=== PATIENT | male | born 1950 | race African-American/Black ===

== ENCOUNTER 2017-02-02 10:48 | Emergency (ER) | payer OTHER ==
[~2017-02-02] VITALS: Ht 180.3 cm; Wt 76.8 kg
[~2017-02-02 10:48] MED LIST: GEMF600T3 PO; HYDR12.54 PO; IBUP-2071 PO; LEVE750T10 PO; LISI-660 PO; THIA100 PO
[2017-02-02] MEDS ORDERED: SODIUM CHLORIDE 0.9% 1,000 ML IV ONE ×2 (11:30→12:15)
[2017-02-02 11:42] LABS: BASOPHILS % (AUTO) 0.3 % (0.0-2.0); EOSINOPHILS % (AUTO) 0.6 % (1.0-6.0); HEMATOCRIT 33.9 % (41-53); HEMOGLOBIN 11.5 g/dL (13.5-17.5); LYMPHOCYTES # (AUTO) 1.4 K/uL (1.0-4.8); LYMPHOCYTES % (AUTO) 9.2 % (22.0-44.0); MEAN CORPUSCULAR HEMOGLOBIN 31.5 pg (26.0-34.0); MEAN CORPUSCULAR VOLUME 93 fL (80-100); MONOCYTES # (AUTO) 1.3 K/uL (0.1-1.0); MONOCYTES % (AUTO) 8.9 % (2.0-9.0); NEUTROPHILS # (AUTO) 12.2 K/uL (1.8-7.7); PLATELET COUNT (AUTO) 310 K/uL (150-450); RED BLOOD CELL COUNT(AUTO) 3.66 MIL/uL (4.50-5.90); RED CELL DISTRIBUTION WIDTH 14.3 % (11.5-14.5)
[2017-02-02 11:51] LABS: CALCIUM, TOTAL 9.4 mg/dL (8.8-10.5); CREATININE 1.84 mg/dL (0.60-1.30); POTASSIUM 4.2 mmol/L (3.5-5.1)
[2017-02-02 11:59] LABS: BILIRUBIN,TOTAL 1.2 mg/dL (0.1-1.0); TOTAL PROTEIN, SERUM 8.5 g/dL (6.4-8.2)
[2017-02-02 12:06] LABS: INFLUENZA TYPE B NEGATIVE FOR TYPE B (NEGATIVE)
[2017-02-02] MEDS ORDERED: ALBUTEROL SULFATE 2.5 MG/0.5 ML NEB SOLUTION NEB ONE (12:15)
[2017-02-02] MEDS ORDERED: MethylPREDNISolone SOD SUCC 125 MG/2 ML VIAL IVP ONE (12:15)
[2017-02-02] MEDS ORDERED: IPRATROPIUM BROMIDE 0.5 MG/2.5 ML NEB SOLUTION NEB ONE (12:15)
[2017-02-02 14:19] VITALS: BP 111/78
== END 2017-02-02 14:38 | disposition home or self-care (01) ==
LOC: EMS 10:50
DX: J40 Bronchitis, not specified as acute or chronic (principal); E86.0 Dehydration; R19.7 Diarrhea, unspecified; F17.210 Nicotine dependence, cigarettes, uncomplicated; F03.90 Unspecified dementia, unspecified severity, without behavioral disturbance, psychotic disturbance, mood disturbance, and anxiety; I10 Essential (primary) hypertension; F32.9 Major depressive disorder, single episode, unspecified
CPT/HCPCS: 36415; 71010; 80053; 85025; 87804; 94640; 96361; 96374; 99285; J2930; J7030; J7613

== ENCOUNTER 2017-02-15 12:46 | Inpatient (IN) | payer MEDICAID, OTHER ==
[~2017-02-15] VITALS: Ht 182.9 cm; Wt 73.0 kg
[2017-02-15] MEDS ORDERED: GABA-531 PO (13:00)
[2017-02-15] MEDS ORDERED: ACET1TAB12 PO (13:03)
[2017-02-15 14:51] LABS: BASOPHILS % (AUTO) 0.9 % (0.0-2.0); EOSINOPHILS % (AUTO) 4.1 % (1.0-6.0); HEMATOCRIT 31.3 % (41-53); HEMOGLOBIN 10.3 g/dL (13.5-17.5); LYMPHOCYTES # (AUTO) 1.8 K/uL (1.0-4.8); LYMPHOCYTES % (AUTO) 32.7 % (22.0-44.0); MEAN CORPUSCULAR HEMOGLOBIN 31.2 pg (26.0-34.0); MEAN CORPUSCULAR HGB CONC 32.9 G/dL (31.0-37.0); MEAN CORPUSCULAR VOLUME 95 fL (80-100); MONOCYTES # (AUTO) 0.6 K/uL (0.1-1.0); MONOCYTES % (AUTO) 10.4 % (2.0-9.0); NEUTROPHILS # (AUTO) 2.9 K/uL (1.8-7.7); NEUTROPHILS % (AUTO) 51.9 % (40.0-70.0); PLATELET COUNT (AUTO) 490 K/uL (150-450); RED CELL DISTRIBUTION WIDTH 15.2 % (11.5-14.5); WHITE BLOOD COUNT (AUTO) 5.6 K/uL (4.5-11.0)
[2017-02-15 15:02] LABS: ANION GAP 7 mmol/L (8-16); CALCIUM, TOTAL 8.7 mg/dL (8.8-10.5); CARBON DIOXIDE 31 mmol/L (22-29); CHLORIDE 107 mmol/L (98-107); CREATININE 1.87 mg/dL (0.60-1.30); GLOMERULAR FILTR. RATE CALC 44 mL/min (>60); POTASSIUM 4.5 mmol/L (3.5-5.1); SODIUM SERUM 145 mmol/L (136-145); UREA NITROGEN, BLOOD 25 mg/dL (7-18)
[2017-02-15 15:08] LABS: ALANINE AMINOTRANSFERASE 20 U/L (12-78); ASPARTATE AMINOTRANSFERASE 21 U/L (15-37); BILIRUBIN,TOTAL 0.1 mg/dL (0.1-1.0)
[2017-02-15] MEDS ORDERED: LORazepam 2 MG TABLET PO PRN (18:30)
[2017-02-15] MEDS ORDERED: LORazepam 2 MG TABLET PO ONE (18:30)
[2017-02-15] MEDS ORDERED: ZOLPIDEM TARTRATE 10 MG TABLET PO PRN (18:30)
[2017-02-15] MEDS ORDERED: HALOPERIDOL 5 MG TABLET PO PRN (18:30)
[2017-02-15] MEDS: LevETIRAcetam 250 MG TABLET PO SCH (20:02)
[2017-02-15 22:43] VITALS: BP 126/75
[2017-02-16] MEDS ORDERED: PNEUMOCOCCAL VACCINE POLYVALENT 0.5 ML VIAL [PPSV23] IM ONE (03:30)
[2017-02-16 06:16] VITALS: BP 112/69
[2017-02-16] MEDS: LOSARTAN POTASSIUM 25 MG TABLET PO SCH (08:51)
[2017-02-16] MEDS: LevETIRAcetam 250 MG TABLET PO SCH ×2 (08:51→16:51)
[2017-02-16] MEDS: NICOTINE 21 MG/24 HOUR PATCH TD SCH (08:52)
[2017-02-16 09:10] VITALS: BP 122/66
[2017-02-16] MEDS ORDERED: HydrOXYzine PAMOATE 25 MG CAPSULE PO PRN (15:45)
[2017-02-16 16:27] VITALS: BP 136/76
[2017-02-16] MEDS: SERTRALINE HCL 50 MG TABLET PO SCH (16:51)
[2017-02-16] MEDS: MULTIVITAMINS WITH IRON TABLET PO SCH (16:51)
[2017-02-16] MEDS ORDERED: LOPERAMIDE HCL 2 MG CAPSULE PO PRN (17:45)
[2017-02-17] MEDS: FERROUS SULFATE 325 MG EC TABLET PO SCH (06:16)
[2017-02-17 06:42] VITALS: BP 148/80
[2017-02-17] MEDS: LevETIRAcetam 250 MG TABLET PO SCH ×2 (08:52→16:21)
[2017-02-17] MEDS: MULTIVITAMINS WITH IRON TABLET PO SCH (08:52)
[2017-02-17] MEDS: LOSARTAN POTASSIUM 25 MG TABLET PO SCH (08:52)
[2017-02-17] MEDS: SERTRALINE HCL 50 MG TABLET PO SCH (08:52)
[2017-02-17 08:53] VITALS: BP 132/68
[2017-02-17] MEDS: NICOTINE 21 MG/24 HOUR PATCH TD SCH (08:53)
[2017-02-17 16:45] VITALS: BP 146/74
[2017-02-18 06:19] VITALS: BP 148/87
[2017-02-18] MEDS: FERROUS SULFATE 325 MG EC TABLET PO SCH (06:23)
[2017-02-18 07:16] VITALS: BP 137/80
[2017-02-18] MEDS: LevETIRAcetam 250 MG TABLET PO SCH ×2 (08:36→16:12)
[2017-02-18] MEDS: LOSARTAN POTASSIUM 25 MG TABLET PO SCH (08:36)
[2017-02-18] MEDS: MULTIVITAMINS WITH IRON TABLET PO SCH (08:36)
[2017-02-18] MEDS: SERTRALINE HCL 50 MG TABLET PO SCH (08:36)
[2017-02-18] MEDS: NICOTINE 21 MG/24 HOUR PATCH TD SCH (08:37)
[2017-02-18 08:53] VITALS: BP 133/68
[2017-02-18 16:31] VITALS: BP 140/74
[2017-02-19 00:45] VITALS: BP 126/72
[2017-02-19] MEDS: FERROUS SULFATE 325 MG EC TABLET PO SCH (06:19)
[2017-02-19 08:46] VITALS: BP 126/76
[2017-02-19] MEDS: LOSARTAN POTASSIUM 25 MG TABLET PO SCH (09:01)
[2017-02-19] MEDS: LevETIRAcetam 250 MG TABLET PO SCH ×2 (09:01→16:01)
[2017-02-19] MEDS: SERTRALINE HCL 50 MG TABLET PO SCH (09:01)
[2017-02-19] MEDS: NICOTINE 21 MG/24 HOUR PATCH TD SCH (09:01)
[2017-02-19] MEDS: MULTIVITAMINS WITH IRON TABLET PO SCH (09:01)
[2017-02-19 16:29] VITALS: BP 110/82
[2017-02-20 00:56] VITALS: BP 134/68
[2017-02-20] MEDS: FERROUS SULFATE 325 MG EC TABLET PO SCH (06:43)
[2017-02-20 08:20] VITALS: BP 114/69
[2017-02-20] MEDS: LevETIRAcetam 250 MG TABLET PO SCH ×2 (08:39→16:48)
[2017-02-20] MEDS: SERTRALINE HCL 50 MG TABLET PO SCH (08:39)
[2017-02-20] MEDS: NICOTINE 21 MG/24 HOUR PATCH TD SCH (08:39)
[2017-02-20] MEDS: MULTIVITAMINS WITH IRON TABLET PO SCH (08:39)
[2017-02-20] MEDS: LOSARTAN POTASSIUM 25 MG TABLET PO SCH (08:39)
[2017-02-20] MEDS ORDERED: SERT50TA12 PO (16:30)
[2017-02-20] MEDS ORDERED: FERR325T22 PO (16:33)
[2017-02-20] MEDS ORDERED: LOSA25TA21 PO (16:34)
== END 2017-02-20 17:05 | disposition home or self-care (01) | DRG 751 ==
LOC: EMS 12:51 → B2S 19:20
PROVIDERS: ADMIT Psychiatry & Neurology Psychiatry; ATTEND Psychiatry & Neurology Psychiatry
PROC: 3E0234Z Introduction of Serum, Toxoid and Vaccine into Muscle, Percutaneous Approach (ICD-10-PCS; principal; 2017-02-16)
DX: F33.2 Major depressive disorder, recurrent severe without psychotic features (principal); F03.90 Unspecified dementia, unspecified severity, without behavioral disturbance, psychotic disturbance, mood disturbance, and anxiety; R45.851 Suicidal ideations; G40.909 Epilepsy, unspecified, not intractable, without status epilepticus; D64.9 Anemia, unspecified; E78.5 Hyperlipidemia, unspecified; I10 Essential (primary) hypertension; F17.200 Nicotine dependence, unspecified, uncomplicated; F14.20 Cocaine dependence, uncomplicated; Z79.899 Other long term (current) drug therapy; Z81.8 Family history of other mental and behavioral disorders; Z81.3 Family history of other psychoactive substance abuse and dependence; Z63.9 Problem related to primary support group, unspecified; Z23 Encounter for immunization
CPT/HCPCS: 90471; 99285; 99406; G0480; G0482

== ENCOUNTER 2017-04-19 14:45 | Inpatient (IN) | payer MEDICAID, OTHER ==
[~2017-04-19] VITALS: Ht 177.8 cm; Wt 74.8 kg
[~2017-04-19 14:45] MED LIST changes: +FERR325T22 PO; -GEMF600T3 PO; -HYDR12.54 PO; -IBUP-2071 PO; -LISI-660 PO; +LOSA25TA21 PO; +SERT50TA12 PO; -THIA100 PO
[2017-04-19] MEDS ORDERED: CHL25 PO (14:53)
[2017-04-19] MEDS ORDERED: EPIN0.3P3 IM (14:53)
[2017-04-19] MEDS ORDERED: HYDR-4031 PO (14:53)
[2017-04-19] MEDS ORDERED: GABA-531 PO (14:53)
[2017-04-19] MEDS ORDERED: CYCL10 PO (14:53)
[2017-04-19] MEDS ORDERED: NAPR-58 PO (14:53)
[2017-04-19 15:55] LABS: EOSINOPHILS % (AUTO) 5.9 % (1.0-6.0); HEMATOCRIT 40.9 % (41-53); HEMOGLOBIN 13.6 g/dL (13.5-17.5); LYMPHOCYTES % (AUTO) 31.4 % (22.0-44.0); MEAN CORPUSCULAR HEMOGLOBIN 29.3 pg (26.0-34.0); MEAN CORPUSCULAR HGB CONC 33.2 G/dL (31.0-37.0); MEAN CORPUSCULAR VOLUME 88 fL (80-100); MONOCYTES # (AUTO) 0.7 K/uL (0.1-1.0); MONOCYTES % (AUTO) 11.9 % (2.0-9.0); NEUTROPHILS # (AUTO) 3.1 K/uL (1.8-7.7); NEUTROPHILS % (AUTO) 49.8 % (40.0-70.0); PLATELET COUNT (AUTO) 231 K/uL (150-450); RED BLOOD CELL COUNT(AUTO) 4.63 MIL/uL (4.50-5.90); RED CELL DISTRIBUTION WIDTH 13.6 % (11.5-14.5)
[2017-04-19 16:02] LABS: ANION GAP 7 mmol/L (8-16); CALCIUM, TOTAL 8.6 mg/dL (8.8-10.5); CARBON DIOXIDE 31 mmol/L (22-29); CHLORIDE 103 mmol/L (98-107); CREATININE 1.82 mg/dL (0.60-1.30); GLOMERULAR FILTR. RATE CALC 46 mL/min (>60); GLUCOSE,RANDOM 109 mg/dL (70-110); POTASSIUM 3.3 mmol/L (3.5-5.1); SODIUM SERUM 141 mmol/L (136-145); UREA NITROGEN, BLOOD 32 mg/dL (7-18)
[2017-04-19 16:17] LABS: SALICYLATE 5.6 mg/dL (2.8-20.0)
[2017-04-19 16:27] LABS: ALANINE AMINOTRANSFERASE 26 U/L (12-78); ALKALINE PHOSPHATASE 117 U/L (46-116); ASPARTATE AMINOTRANSFERASE 30 U/L (15-37); BILIRUBIN,TOTAL 0.3 mg/dL (0.1-1.0); CKMB RELATIVE INDEX 1.4 % (0.0-4.0); CREATINE KINASE MB 6.4 ng/mL (0-5); CREATINE KINASE, TOTAL 450 U/L (39-308); THYROID STIMULATING HORMONE 0.97 uIU/mL (0.36-3.74); TOTAL PROTEIN, SERUM 6.9 g/dL (6.4-8.2)
[2017-04-19 16:32] LABS: APPEARANCE,URINE CLEAR (CLEAR); BILIRUBIN,URINE NEGATIVE (NEGATIVE); GLUCOSE, URINE (UA) NEGATIVE (NEGATIVE); KETONES,URINE NEGATIVE (NEGATIVE); LEUKOCYTE ESTERASE ,URINE NEGATIVE (NEGATIVE); NITRATE,URINE NEGATIVE (NEGATIVE); OCCULT BLOOD,URINE NEGATIVE (NEGATIVE); PROTEIN,URINE NEGATIVE (NEGATIVE)
[2017-04-19] MEDS ORDERED: SODIUM CHLORIDE 0.9% 1,000 ML IV ONE (17:00)
[2017-04-19 17:16] LABS: ACETAMINOPHEN < 2 mcg/mL (10-30)
[2017-04-19 17:37] LABS: BACTERIA,URINE Rare /HPF (None Seen); RBC,URINE None Seen /HPF (0-2); WBC,URINE 0-2 /HPF (0-5)
[2017-04-19 17:38] LABS: SQUAMOUS EPITHELIAL CELL,UR Rare /LPF (None Seen)
[2017-04-19 17:51] LABS: AMPHET/METH SCREEN,URINE NEGATIVE (NEGATIVE); BARBITURATE SCREEN, URINE NEGATIVE (NEGATIVE); BENZODIAZEPINES SCREEN,URINE NEGATIVE (NEGATIVE); CANNABINOID SCREEN,URINE NEGATIVE (NEGATIVE); COCAINE SCREEN,URINE POSITIVE (NEGATIVE); METHADONE SCREEN, URINE NEGATIVE (NEGATIVE); OPIATE SCREEN,URINE NEGATIVE (NEGATIVE)
[2017-04-19 17:58] LABS: PHENCYCLIDINE SCREEN,URINE NEGATIVE (NEGATIVE)
[2017-04-19 20:04] LABS: ALBUMIN 3.5 g/dL (3.4-5.0); BILIRUBIN,TOTAL 0.4 mg/dL (0.1-1.0); CREATININE 1.51 mg/dL (0.60-1.30); POTASSIUM 3.4 mmol/L (3.5-5.1); TOTAL PROTEIN, SERUM 6.5 g/dL (6.4-8.2)
[2017-04-20] MEDS ORDERED: HALOPERIDOL 5 MG TABLET PO PRN (04:30)
[2017-04-20] MEDS ORDERED: ZOLPIDEM TARTRATE 10 MG TABLET PO PRN (04:30)
[2017-04-20 06:38] VITALS: BP 139/89
[2017-04-20] MEDS: LORazepam 2 MG TABLET PO PRN (08:15)
[2017-04-20] MEDS: SERTRALINE HCL 50 MG TABLET PO SCH (10:28)
[2017-04-20 10:57] VITALS: BP 139/71
[2017-04-20] MEDS: HydrOXYzine PAMOATE 25 MG CAPSULE PO SCH ×2 (12:32→16:34)
[2017-04-20 16:12] VITALS: BP 131/72
[2017-04-20] MEDS ORDERED: POTASSIUM CHLORIDE 20 MEQ ER TABLET PO ONE ×2 (16:15→17:15)
[2017-04-20 17:05] VITALS: BP 171/97
[2017-04-20 17:20] VITALS: BP 143/79
[2017-04-20] MEDS: LevETIRAcetam 500 MG TABLET PO SCH (17:46)
[2017-04-20] MEDS ORDERED: KDUR20 PO (18:58)
[2017-04-20 19:13] LABS: GLUCOSE,POINT OF CARE 92 MG/DL (70-110)
[2017-04-21 06:54] VITALS: BP 121/78
[2017-04-21] MEDS: FERROUS SULFATE 325 MG EC TABLET PO SCH (06:54)
[2017-04-21 08:08] VITALS: BP 136/80
[2017-04-21 08:29] LABS: ALANINE AMINOTRANSFERASE 26 U/L (12-78); ALBUMIN 3.5 g/dL (3.4-5.0); ALKALINE PHOSPHATASE 86 U/L (46-116); ANION GAP 8 mmol/L (8-16); ASPARTATE AMINOTRANSFERASE 26 U/L (15-37); BILIRUBIN,TOTAL 0.4 mg/dL (0.1-1.0); CALCIUM, TOTAL 8.8 mg/dL (8.8-10.5); CARBON DIOXIDE 29 mmol/L (22-29); CHLORIDE 103 mmol/L (98-107); CHOL/HDL RATIO 4.3 (4.2-7.3); CHOLESTEROL 151 mg/dL (131-200); CREATININE 1.16 mg/dL (0.60-1.30); GLOMERULAR FILTR. RATE CALC > 60 mL/min (>60); GLUCOSE,RANDOM 86 mg/dL (70-110); HDL CHOLESTEROL 35 mg/dL (40-60); LDL CHOL (CALC.) 86 mg/dL (0-130); POTASSIUM 3.2 mmol/L (3.5-5.1); SODIUM SERUM 140 mmol/L (136-145); TOTAL PROTEIN, SERUM 6.8 g/dL (6.4-8.2); TRIGLYCERIDES 151 mg/dL (15-150); UREA NITROGEN, BLOOD 23 mg/dL (7-18)
[2017-04-21] MEDS: LevETIRAcetam 500 MG TABLET PO SCH ×2 (10:15→16:58)
[2017-04-21] MEDS: CYCLOBENZAPRINE HCL 10 MG TABLET PO SCH ×2 (10:15→16:59)
[2017-04-21] MEDS: LOSARTAN POTASSIUM 25 MG TABLET PO SCH (10:16)
[2017-04-21] MEDS: SERTRALINE HCL 50 MG TABLET PO SCH (10:16)
[2017-04-21] MEDS: CHLORTHALIDONE 25 MG TABLET PO SCH (10:16)
[2017-04-21] MEDS: HydrOXYzine PAMOATE 25 MG CAPSULE PO SCH ×3 (10:16→16:58)
[2017-04-21] MEDS ORDERED: POTASSIUM CHLORIDE 20 MEQ ER TABLET PO ONE (11:45)
[2017-04-21 16:00] VITALS: BP 127/80
[2017-04-21] MEDS: LORazepam 2 MG TABLET PO PRN (16:59)
[2017-04-22] MEDS: FERROUS SULFATE 325 MG EC TABLET PO SCH (06:14)
[2017-04-22 06:30] VITALS: BP 127/72
[2017-04-22 08:09] VITALS: BP 113/72
[2017-04-22 08:25] LABS: ANION GAP 8 mmol/L (8-16); CARBON DIOXIDE 29 mmol/L (22-29); CHLORIDE 104 mmol/L (98-107); CREATININE 1.15 mg/dL (0.60-1.30); GLOMERULAR FILTR. RATE CALC > 60 mL/min (>60); GLUCOSE,RANDOM 85 mg/dL (70-110); POTASSIUM 3.8 mmol/L (3.5-5.1); SODIUM SERUM 141 mmol/L (136-145); UREA NITROGEN, BLOOD 23 mg/dL (7-18)
[2017-04-22] MEDS: SERTRALINE HCL 50 MG TABLET PO SCH (09:41)
[2017-04-22] MEDS: HydrOXYzine PAMOATE 25 MG CAPSULE PO SCH ×3 (09:41→16:30)
[2017-04-22] MEDS: LOSARTAN POTASSIUM 25 MG TABLET PO SCH (09:41)
[2017-04-22] MEDS: LevETIRAcetam 500 MG TABLET PO SCH ×2 (09:41→16:30)
[2017-04-22] MEDS: CYCLOBENZAPRINE HCL 10 MG TABLET PO SCH ×2 (09:41→16:30)
[2017-04-22] MEDS: CHLORTHALIDONE 25 MG TABLET PO SCH (09:42)
[2017-04-22] MEDS: NICOTINE 21 MG/24 HOUR PATCH TD SCH (10:05)
[2017-04-22 16:00] VITALS: BP 138/71
[2017-04-22] MEDS: LORazepam 2 MG TABLET PO PRN (16:30)
[2017-04-23 04:34] VITALS: BP 129/88
[2017-04-23] MEDS: FERROUS SULFATE 325 MG EC TABLET PO SCH (06:27)
[2017-04-23 08:39] VITALS: BP 118/72
[2017-04-23] MEDS: CYCLOBENZAPRINE HCL 10 MG TABLET PO SCH ×2 (08:49→16:38)
[2017-04-23] MEDS: CHLORTHALIDONE 25 MG TABLET PO SCH (08:49)
[2017-04-23] MEDS: HydrOXYzine PAMOATE 25 MG CAPSULE PO SCH ×3 (08:49→16:38)
[2017-04-23] MEDS: LOSARTAN POTASSIUM 25 MG TABLET PO SCH (08:49)
[2017-04-23] MEDS: NICOTINE 21 MG/24 HOUR PATCH TD SCH (08:49)
[2017-04-23] MEDS: SERTRALINE HCL 50 MG TABLET PO SCH (08:50)
[2017-04-23] MEDS: LevETIRAcetam 500 MG TABLET PO SCH ×2 (08:50→16:38)
[2017-04-23 16:00] VITALS: BP 125/75
[2017-04-23] MEDS: LORazepam 2 MG TABLET PO PRN (16:38)
[2017-04-24 02:00] VITALS: BP 125/77
[2017-04-24] MEDS: FERROUS SULFATE 325 MG EC TABLET PO SCH (06:53)
[2017-04-24 08:29] VITALS: BP 115/73
[2017-04-24] MEDS: SERTRALINE HCL 50 MG TABLET PO SCH (08:51)
[2017-04-24] MEDS: CHLORTHALIDONE 25 MG TABLET PO SCH (08:51)
[2017-04-24] MEDS: LOSARTAN POTASSIUM 25 MG TABLET PO SCH (08:51)
[2017-04-24] MEDS: HydrOXYzine PAMOATE 25 MG CAPSULE PO SCH ×3 (08:51→16:46)
[2017-04-24] MEDS: LevETIRAcetam 500 MG TABLET PO SCH ×2 (08:52→16:47)
[2017-04-24] MEDS: CYCLOBENZAPRINE HCL 10 MG TABLET PO SCH ×2 (08:53→16:46)
[2017-04-24] MEDS: NICOTINE 21 MG/24 HOUR PATCH TD SCH (08:54)
[2017-04-24 16:15] VITALS: BP 121/78
[2017-04-24] MEDS: LORazepam 2 MG TABLET PO PRN (16:59)
[2017-04-25 05:59] VITALS: BP 116/68
[2017-04-25] MEDS: FERROUS SULFATE 325 MG EC TABLET PO SCH (06:43)
[2017-04-25 08:00] VITALS: BP 118/74
[2017-04-25] MEDS: NICOTINE 21 MG/24 HOUR PATCH TD SCH (09:30)
[2017-04-25] MEDS: CHLORTHALIDONE 25 MG TABLET PO SCH (09:30)
[2017-04-25] MEDS: CYCLOBENZAPRINE HCL 10 MG TABLET PO SCH ×2 (09:31→16:29)
[2017-04-25] MEDS: LOSARTAN POTASSIUM 25 MG TABLET PO SCH (09:31)
[2017-04-25] MEDS: HydrOXYzine PAMOATE 25 MG CAPSULE PO SCH ×3 (09:31→16:30)
[2017-04-25] MEDS: LevETIRAcetam 500 MG TABLET PO SCH ×2 (09:31→16:29)
[2017-04-25] MEDS: SERTRALINE HCL 50 MG TABLET PO SCH (09:31)
[2017-04-25 16:36] VITALS: BP 114/66
[2017-04-26 01:22] VITALS: BP 106/68
[2017-04-26] MEDS: FERROUS SULFATE 325 MG EC TABLET PO SCH (06:50)
[2017-04-26 08:37] VITALS: BP 119/72
[2017-04-26] MEDS: LevETIRAcetam 500 MG TABLET PO SCH ×2 (09:00→16:07)
[2017-04-26] MEDS: SERTRALINE HCL 50 MG TABLET PO SCH (09:00)
[2017-04-26] MEDS: HydrOXYzine PAMOATE 25 MG CAPSULE PO SCH ×3 (09:00→16:07)
[2017-04-26] MEDS: CYCLOBENZAPRINE HCL 10 MG TABLET PO SCH ×2 (09:00→16:06)
[2017-04-26] MEDS: CHLORTHALIDONE 25 MG TABLET PO SCH (09:01)
[2017-04-26] MEDS: LOSARTAN POTASSIUM 25 MG TABLET PO SCH (09:01)
[2017-04-26] MEDS: NICOTINE 21 MG/24 HOUR PATCH TD SCH (09:05)
[2017-04-26 16:14] VITALS: BP_SYST 109; BP_SYST 110; BP_DIAS 68
[2017-04-27 01:16] VITALS: BP 102/69
[2017-04-27] MEDS ORDERED: SODIUM CL IRRIG SOLN BAG 0 ML IRRIG ONE (07:02)
[2017-04-27] MEDS: FERROUS SULFATE 325 MG EC TABLET PO SCH (07:09)
[2017-04-27] MEDS ORDERED: SODIUM CHLORIDE 0.9% 0 ML ONE (07:34)
[2017-04-27 08:26] VITALS: BP 117/77
[2017-04-27] MEDS: NICOTINE 21 MG/24 HOUR PATCH TD SCH (10:17)
[2017-04-27] MEDS: CYCLOBENZAPRINE HCL 10 MG TABLET PO SCH (10:17)
[2017-04-27] MEDS: CHLORTHALIDONE 25 MG TABLET PO SCH (10:17)
[2017-04-27] MEDS: LevETIRAcetam 500 MG TABLET PO SCH (10:17)
[2017-04-27] MEDS: HydrOXYzine PAMOATE 25 MG CAPSULE PO SCH ×2 (10:17→11:56)
[2017-04-27] MEDS: GABAPENTIN 300 MG CAPSULE PO SCH ×2 (10:17→11:56)
[2017-04-27] MEDS: SERTRALINE HCL 50 MG TABLET PO SCH (10:17)
[2017-04-27] MEDS: LOSARTAN POTASSIUM 25 MG TABLET PO SCH (10:18)
[2017-04-27] MEDS ORDERED: CeFAZolin 2 GM/DEXTROSE 50 ML IV ONE (11:38)
[2017-04-27] MEDS ORDERED: MEPERIDINE-PF 25 MG/ML SYRINGE ONE (11:45)
[2017-04-27] MEDS ORDERED: RINGERS SOLUTION,LACTATED 1,000 ML IV ONE (12:01)
[2017-04-27] MEDS ORDERED: LEVE250T55 PO (14:11)
== END 2017-04-27 15:00 | disposition home or self-care (01) | DRG 751 ==
LOC: EMS 14:47 → B3A 04-20 04:30 → EMS 04-20 05:21 → B2S 04-23 18:25
PROVIDERS: ADMIT Psychiatry & Neurology Child & Adolescent Psychiatry; ATTEND Psychiatry & Neurology Child & Adolescent Psychiatry
DX: F33.2 Major depressive disorder, recurrent severe without psychotic features (principal); F03.90 Unspecified dementia, unspecified severity, without behavioral disturbance, psychotic disturbance, mood disturbance, and anxiety; R45.851 Suicidal ideations; F14.20 Cocaine dependence, uncomplicated; G40.909 Epilepsy, unspecified, not intractable, without status epilepticus; I12.9 Hypertensive chronic kidney disease with stage 1 through stage 4 chronic kidney disease, or unspecified chronic kidney disease; N18.9 Chronic kidney disease, unspecified; T50.902A Poisoning by unspecified drugs, medicaments and biological substances, intentional self-harm, initial encounter; E78.5 Hyperlipidemia, unspecified; F17.210 Nicotine dependence, cigarettes, uncomplicated; Y92.89 Other specified places as the place of occurrence of the external cause; Z79.899 Other long term (current) drug therapy
CPT/HCPCS: 80074; 82948; 82962; 84443; 93005; 96360; 99291; G0480; G0481; J0690; J2175; J7120

== ENCOUNTER 2017-04-20 18:46 | Emergency (ER) | payer MEDICAID, OTHER ==
[~2017-04-20] VITALS: Ht 180.3 cm; Wt 77.3 kg
[~2017-04-20 18:46] MED LIST changes: +CHL25 PO; +CYCL10 PO; +EPIN0.3P3 IM; +GABA-531 PO; +HYDR-4031 PO; +NAPR-58 PO
[2017-04-20] MEDS ORDERED: KDUR20 PO (18:58)
[2017-04-20 21:14] VITALS: BP 148/89
== END 2017-04-20 21:55 | disposition home or self-care (01) ==
LOC: EMS 18:47
DX: G40.909 Epilepsy, unspecified, not intractable, without status epilepticus (principal); F03.90 Unspecified dementia, unspecified severity, without behavioral disturbance, psychotic disturbance, mood disturbance, and anxiety; F31.9 Bipolar disorder, unspecified; I10 Essential (primary) hypertension; F17.210 Nicotine dependence, cigarettes, uncomplicated
CPT/HCPCS: 99285

== ENCOUNTER 2017-06-18 15:55 | Inpatient (IN) | payer MEDICAID, OTHER ==
[~2017-06-18] VITALS: Ht 172.7 cm; Wt 80.3 kg
[~2017-06-18 15:55] MED LIST changes: -EPIN0.3P3 IM; +LEVE250T55 PO; -LEVE750T10 PO; -NAPR-58 PO
[2017-06-18] MEDS ORDERED: LORazepam 2 MG TABLET PO ONE (16:45)
[2017-06-18 16:53] LABS: BASOPHILS % (AUTO) 1.6 % (0.0-2.0); EOSINOPHILS % (AUTO) 5.8 % (1.0-6.0); HEMATOCRIT 37.7 % (41-53); HEMOGLOBIN 12.8 g/dL (13.5-17.5); LYMPHOCYTES # (AUTO) 2.2 K/uL (1.0-4.8); LYMPHOCYTES % (AUTO) 29.4 % (22.0-44.0); MEAN CORPUSCULAR HEMOGLOBIN 29.8 pg (26.0-34.0); MEAN CORPUSCULAR HGB CONC 33.9 G/dL (31.0-37.0); MEAN CORPUSCULAR VOLUME 88 fL (80-100); MONOCYTES # (AUTO) 0.6 K/uL (0.1-1.0); MONOCYTES % (AUTO) 8.1 % (2.0-9.0); NEUTROPHILS # (AUTO) 4.2 K/uL (1.8-7.7); NEUTROPHILS % (AUTO) 55.1 % (40.0-70.0); PLATELET COUNT (AUTO) 265 K/uL (150-450); RED BLOOD CELL COUNT(AUTO) 4.28 MIL/uL (4.50-5.90); RED CELL DISTRIBUTION WIDTH 13.7 % (11.5-14.5)
[2017-06-18 17:02] LABS: ANION GAP 8 mmol/L (8-16); CALCIUM, TOTAL 8.6 mg/dL (8.8-10.5); CARBON DIOXIDE 29 mmol/L (22-29); CHLORIDE 100 mmol/L (98-107); CREATININE 1.54 mg/dL (0.60-1.30); GLOMERULAR FILTR. RATE CALC 55 mL/min (>60); GLUCOSE,RANDOM 91 mg/dL (70-110); POTASSIUM 3.5 mmol/L (3.5-5.1); SODIUM SERUM 137 mmol/L (136-145); UREA NITROGEN, BLOOD 25 mg/dL (7-18)
[2017-06-18 17:08] LABS: ALANINE AMINOTRANSFERASE 26 U/L (12-78); ALBUMIN 3.9 g/dL (3.4-5.0); ALKALINE PHOSPHATASE 107 U/L (46-116); ASPARTATE AMINOTRANSFERASE 29 U/L (15-37); BILIRUBIN,TOTAL 0.4 mg/dL (0.1-1.0)
[2017-06-18] MEDS ORDERED: HALOPERIDOL 5 MG TABLET PO PRN (18:00)
[2017-06-18] MEDS: LevETIRAcetam 250 MG TABLET PO SCH (18:53)
[2017-06-18 20:52] VITALS: BP 148/83
[2017-06-18] MEDS ORDERED: -PHARMACY VACCINE NOTE- MISC ONE (21:45)
[2017-06-18] MEDS ORDERED: INFLUENZA VIRUS VACCINE QVS 2017-18 (3YR+)/PF 60 MCG/0.5 ML SYRINGE IM ONE (21:45)
[2017-06-19 05:45] VITALS: BP 112/68
[2017-06-19] MEDS: FERROUS SULFATE 325 MG EC TABLET PO SCH (06:47)
[2017-06-19 08:21] VITALS: BP 112/67
[2017-06-19 08:33] LABS: BASOPHILS % (AUTO) 1.1 % (0.0-2.0); EOSINOPHILS % (AUTO) 8.1 % (1.0-6.0); HEMATOCRIT 37.2 % (41-53); HEMOGLOBIN 12.5 g/dL (13.5-17.5); LYMPHOCYTES # (AUTO) 2.2 K/uL (1.0-4.8); LYMPHOCYTES % (AUTO) 31.8 % (22.0-44.0); MEAN CORPUSCULAR HEMOGLOBIN 29.8 pg (26.0-34.0); MEAN CORPUSCULAR HGB CONC 33.6 G/dL (31.0-37.0); MEAN CORPUSCULAR VOLUME 89 fL (80-100); MONOCYTES # (AUTO) 0.7 K/uL (0.1-1.0); MONOCYTES % (AUTO) 9.5 % (2.0-9.0); NEUTROPHILS # (AUTO) 3.5 K/uL (1.8-7.7); NEUTROPHILS % (AUTO) 49.5 % (40.0-70.0); PLATELET COUNT (AUTO) 240 K/uL (150-450); RED BLOOD CELL COUNT(AUTO) 4.19 MIL/uL (4.50-5.90); RED CELL DISTRIBUTION WIDTH 13.5 % (11.5-14.5)
[2017-06-19] MEDS: NICOTINE 21 MG/24 HOUR PATCH TD SCH (08:38)
[2017-06-19] MEDS: CYCLOBENZAPRINE HCL 10 MG TABLET PO SCH ×2 (08:38→16:09)
[2017-06-19] MEDS: LOSARTAN POTASSIUM 25 MG TABLET PO SCH (08:38)
[2017-06-19] MEDS: CHLORTHALIDONE 25 MG TABLET PO SCH (08:38)
[2017-06-19 09:21] LABS: ALBUMIN 3.2 g/dL (3.4-5.0); BILIRUBIN,TOTAL 0.3 mg/dL (0.1-1.0); CALCIUM, TOTAL 8.8 mg/dL (8.8-10.5); CHOL/HDL RATIO 5.1 (4.2-7.3); CREATININE 1.47 mg/dL (0.60-1.30); FREE T4 (FREE THYROXINE) 1.18 ng/dL (0.76-1.46); POTASSIUM 3.7 mmol/L (3.5-5.1); THYROID STIMULATING HORMONE 2.11 uIU/mL (0.36-3.74); TOTAL PROTEIN, SERUM 6.3 g/dL (6.4-8.2)
[2017-06-19 09:32] LABS: HEMOGLOBIN A1C 4.8 % (4.5-6.2)
[2017-06-19] MEDS: SERTRALINE HCL 50 MG TABLET PO SCH (10:24)
[2017-06-19] MEDS: HydrOXYzine PAMOATE 25 MG CAPSULE PO SCH ×2 (12:58→16:10)
[2017-06-19] MEDS: GABAPENTIN 300 MG CAPSULE PO SCH ×2 (12:58→16:10)
[2017-06-19] MEDS: LevETIRAcetam 250 MG TABLET PO SCH (16:10)
[2017-06-19 16:51] VITALS: BP 131/78
[2017-06-20 00:01] VITALS: BP 131/80
[2017-06-20] MEDS: ZOLPIDEM TARTRATE 10 MG TABLET PO PRN ×2 (00:04→21:05)
[2017-06-20] MEDS: FERROUS SULFATE 325 MG EC TABLET PO SCH (06:58)
[2017-06-20 08:22] VITALS: BP 110/71
[2017-06-20] MEDS: CYCLOBENZAPRINE HCL 10 MG TABLET PO SCH ×2 (08:31→16:08)
[2017-06-20] MEDS: SERTRALINE HCL 50 MG TABLET PO SCH (08:31)
[2017-06-20] MEDS: HydrOXYzine PAMOATE 25 MG CAPSULE PO SCH ×3 (08:31→16:08)
[2017-06-20] MEDS: GABAPENTIN 300 MG CAPSULE PO SCH ×3 (08:31→16:08)
[2017-06-20] MEDS: LOSARTAN POTASSIUM 25 MG TABLET PO SCH (08:32)
[2017-06-20] MEDS: LevETIRAcetam 250 MG TABLET PO SCH ×2 (08:32→16:08)
[2017-06-20] MEDS: CHLORTHALIDONE 25 MG TABLET PO SCH (08:32)
[2017-06-20] MEDS: NICOTINE 21 MG/24 HOUR PATCH TD SCH (08:32)
[2017-06-20 16:19] VITALS: BP 113/78
[2017-06-21 06:13] VITALS: BP 122/68
[2017-06-21] MEDS: FERROUS SULFATE 325 MG EC TABLET PO SCH (06:39)
[2017-06-21 08:00] VITALS: BP 119/67
[2017-06-21 08:08] LABS: ALBUMIN 2.9 g/dL (3.4-5.0); BILIRUBIN,TOTAL 0.3 mg/dL (0.1-1.0); CALCIUM, TOTAL 8.7 mg/dL (8.8-10.5); CREATININE 1.5 mg/dL (0.60-1.30); POTASSIUM 3.7 mmol/L (3.5-5.1)
[2017-06-21] MEDS: LevETIRAcetam 250 MG TABLET PO SCH ×2 (08:24→16:39)
[2017-06-21] MEDS: HydrOXYzine PAMOATE 25 MG CAPSULE PO SCH ×3 (08:25→16:39)
[2017-06-21] MEDS: LOSARTAN POTASSIUM 25 MG TABLET PO SCH (08:25)
[2017-06-21] MEDS: CHLORTHALIDONE 25 MG TABLET PO SCH (08:25)
[2017-06-21] MEDS: SERTRALINE HCL 100 MG TABLET PO SCH (08:25)
[2017-06-21] MEDS: GABAPENTIN 300 MG CAPSULE PO SCH ×3 (08:25→16:40)
[2017-06-21] MEDS: CYCLOBENZAPRINE HCL 10 MG TABLET PO SCH ×2 (08:35→16:40)
[2017-06-21] MEDS: NICOTINE 21 MG/24 HOUR PATCH TD SCH (08:41)
[2017-06-21] MEDS: LORazepam 2 MG TABLET PO PRN (15:54)
[2017-06-21 16:08] VITALS: BP 118/65
[2017-06-21] MEDS: ZOLPIDEM TARTRATE 10 MG TABLET PO PRN (22:45)
[2017-06-22] MEDS: LORazepam 2 MG TABLET PO PRN (01:59)
[2017-06-22 02:01] VITALS: BP 120/81
[2017-06-22] MEDS: FERROUS SULFATE 325 MG EC TABLET PO SCH (07:14)
[2017-06-22] MEDS: LevETIRAcetam 250 MG TABLET PO SCH (08:41)
[2017-06-22] MEDS: LOSARTAN POTASSIUM 25 MG TABLET PO SCH (08:41)
[2017-06-22] MEDS: CHLORTHALIDONE 25 MG TABLET PO SCH (08:41)
[2017-06-22] MEDS: SERTRALINE HCL 100 MG TABLET PO SCH (08:41)
[2017-06-22] MEDS: GABAPENTIN 300 MG CAPSULE PO SCH (08:42)
[2017-06-22] MEDS: HydrOXYzine PAMOATE 25 MG CAPSULE PO SCH (08:42)
[2017-06-22] MEDS: CYCLOBENZAPRINE HCL 10 MG TABLET PO SCH (08:42)
[2017-06-22 08:45] VITALS: BP 124/73
[2017-06-22] MEDS: NICOTINE 21 MG/24 HOUR PATCH TD SCH (08:50)
[2017-06-22] MEDS ORDERED: SERT100T12 PO (09:12)
[2017-06-22] MEDS ORDERED: CHL25 PO (09:13)
== END 2017-06-22 10:55 | disposition home or self-care (01) | DRG 751 ==
LOC: EMS 15:56 → B2S 18:17
PROVIDERS: ADMIT Psychiatry & Neurology Child & Adolescent Psychiatry; ATTEND Psychiatry & Neurology Child & Adolescent Psychiatry
DX: F33.2 Major depressive disorder, recurrent severe without psychotic features (principal); N17.9 Acute kidney failure, unspecified; F03.90 Unspecified dementia, unspecified severity, without behavioral disturbance, psychotic disturbance, mood disturbance, and anxiety; R56.9 Unspecified convulsions; R45.851 Suicidal ideations; F41.9 Anxiety disorder, unspecified; I12.9 Hypertensive chronic kidney disease with stage 1 through stage 4 chronic kidney disease, or unspecified chronic kidney disease; N18.9 Chronic kidney disease, unspecified; E78.1 Pure hyperglyceridemia; F14.10 Cocaine abuse, uncomplicated; F17.210 Nicotine dependence, cigarettes, uncomplicated; Z79.899 Other long term (current) drug therapy; Z81.1 Family history of alcohol abuse and dependence; Z82.49 Family history of ischemic heart disease and other diseases of the circulatory system
CPT/HCPCS: 83036; 84439; 84443; 99285; G0480; G0482

== ENCOUNTER 2017-07-16 22:27 | Inpatient (IN) | payer MEDICARE, MEDICAID ==
[~2017-07-16] VITALS: Ht 180.3 cm; Wt 82.5 kg
[~2017-07-16 22:27] MED LIST changes: -CYCL10 PO; -GABA-531 PO; +GABA800T PO; +SERT100T12 PO; -SERT50TA12 PO
[2017-07-16 23:42] LABS: BASOPHILS % (AUTO) 1.2 % (0.0-2.0); HEMATOCRIT 42.3 % (41-53); HEMOGLOBIN 14.5 g/dL (13.5-17.5); LYMPHOCYTES # (AUTO) 2.6 K/uL (1.0-4.8); LYMPHOCYTES % (AUTO) 32.4 % (22.0-44.0); MEAN CORPUSCULAR HEMOGLOBIN 30.5 pg (26.0-34.0); MEAN CORPUSCULAR HGB CONC 34.2 G/dL (31.0-37.0); MEAN CORPUSCULAR VOLUME 89 fL (80-100); MONOCYTES # (AUTO) 0.8 K/uL (0.1-1.0); NEUTROPHILS # (AUTO) 4.2 K/uL (1.8-7.7); NEUTROPHILS % (AUTO) 52.4 % (40.0-70.0); PLATELET COUNT (AUTO) 261 K/uL (150-450); RED BLOOD CELL COUNT(AUTO) 4.74 MIL/uL (4.50-5.90); RED CELL DISTRIBUTION WIDTH 13.9 % (11.5-14.5)
[2017-07-16 23:49] LABS: AMPHET/METH SCREEN,URINE NEGATIVE (NEGATIVE); BARBITURATE SCREEN, URINE NEGATIVE (NEGATIVE); BENZODIAZEPINES SCREEN,URINE NEGATIVE (NEGATIVE); CANNABINOID SCREEN,URINE NEGATIVE (NEGATIVE); COCAINE SCREEN,URINE POSITIVE (NEGATIVE); METHADONE SCREEN, URINE NEGATIVE (NEGATIVE); OPIATE SCREEN,URINE NEGATIVE (NEGATIVE); PHENCYCLIDINE SCREEN,URINE NEGATIVE (NEGATIVE)
[2017-07-16 23:57] LABS: ALANINE AMINOTRANSFERASE 32 U/L (12-78); ALBUMIN 4.4 g/dL (3.4-5.0); ALKALINE PHOSPHATASE 126 U/L (46-116); ANION GAP 7 mmol/L (8-16); ASPARTATE AMINOTRANSFERASE 51 U/L (15-37); BILIRUBIN,TOTAL 0.5 mg/dL (0.1-1.0); CARBON DIOXIDE 33 mmol/L (22-29); CHLORIDE 98 mmol/L (98-107); CREATININE 1.61 mg/dL (0.60-1.30); GLOMERULAR FILTR. RATE CALC 53 mL/min (>60); GLUCOSE,RANDOM 90 mg/dL (70-110); SODIUM SERUM 138 mmol/L (136-145); TOTAL PROTEIN, SERUM 8.7 g/dL (6.4-8.2); UREA NITROGEN, BLOOD 16 mg/dL (7-18)
[2017-07-17] LABS: POTASSIUM 2.6 mmol/L (3.5-5.1)
[2017-07-17] MEDS ORDERED: POTASSIUM CHLORIDE 20 MEQ ER TABLET PO ONE (03:15)
[2017-07-17] MEDS ORDERED: HALOPERIDOL 5 MG TABLET PO PRN (05:30)
[2017-07-17] MEDS ORDERED: SODIUM CHLORIDE 0.9% 1,000 ML IV ONE (06:16)
[2017-07-17] MEDS: POTASSIUM CHL 10 MEQ/WATER 50 ML IV SCH ×3 (06:32→08:33)
[2017-07-17 12:45] VITALS: BP 131/75
[2017-07-17] MEDS: NICOTINE 21 MG/24 HOUR PATCH TD SCH (13:04)
[2017-07-17 16:15] VITALS: BP 127/72
[2017-07-17] MEDS: LevETIRAcetam 250 MG TABLET PO SCH (16:40)
[2017-07-17] MEDS: GABAPENTIN 400 MG CAPSULE PO SCH (20:20)
[2017-07-18 00:15] VITALS: BP 138/83
[2017-07-18 08:00] VITALS: BP 119/78
[2017-07-18] MEDS: LevETIRAcetam 250 MG TABLET PO SCH ×2 (08:03→16:33)
[2017-07-18] MEDS: GABAPENTIN 400 MG CAPSULE PO SCH ×3 (08:04→16:33)
[2017-07-18] MEDS: BusPIRone HCL 10 MG TABLET PO SCH ×2 (08:04→16:32)
[2017-07-18] MEDS: NICOTINE 21 MG/24 HOUR PATCH TD SCH (08:05)
[2017-07-18 16:10] VITALS: BP 130/63
[2017-07-19 00:01] VITALS: BP 140/77
[2017-07-19] MEDS: LORazepam 2 MG TABLET PO PRN (00:02)
[2017-07-19 08:17] LABS: CHOL/HDL RATIO 4.3 (4.2-7.3)
[2017-07-19] MEDS: GABAPENTIN 400 MG CAPSULE PO SCH ×3 (08:20→16:51)
[2017-07-19] MEDS: LevETIRAcetam 250 MG TABLET PO SCH ×2 (08:20→16:51)
[2017-07-19] MEDS: SERTRALINE HCL 100 MG TABLET PO SCH (08:20)
[2017-07-19] MEDS: BusPIRone HCL 10 MG TABLET PO SCH ×2 (08:20→16:51)
[2017-07-19] MEDS: NICOTINE 21 MG/24 HOUR PATCH TD SCH (08:21)
[2017-07-19 10:28] VITALS: BP 108/66
[2017-07-19 16:17] VITALS: BP 134/75
[2017-07-19] MEDS: ZOLPIDEM TARTRATE 10 MG TABLET PO PRN (21:33)
[2017-07-20 01:00] VITALS: BP 139/83
[2017-07-20] MEDS: LORazepam 2 MG TABLET PO PRN ×2 (01:14→12:15)
[2017-07-20 08:00] VITALS: BP 133/83
[2017-07-20] MEDS: SERTRALINE HCL 100 MG TABLET PO SCH (08:43)
[2017-07-20] MEDS: NICOTINE 21 MG/24 HOUR PATCH TD SCH (08:43)
[2017-07-20] MEDS: LevETIRAcetam 250 MG TABLET PO SCH ×2 (08:43→16:44)
[2017-07-20] MEDS: BusPIRone HCL 10 MG TABLET PO SCH ×2 (08:43→16:44)
[2017-07-20] MEDS: GABAPENTIN 400 MG CAPSULE PO SCH ×3 (08:43→16:44)
[2017-07-20] MEDS ORDERED: LOSARTAN POTASSIUM 25 MG TABLET PO SCH (09:15)
[2017-07-20] MEDS: AmLODIPine BESYLATE 2.5 MG TABLET PO SCH (12:14)
[2017-07-20 12:15] VITALS: BP 139/75
[2017-07-20 16:11] VITALS: BP 132/73
[2017-07-20] MEDS: ZOLPIDEM TARTRATE 10 MG TABLET PO PRN (20:53)
[2017-07-21 01:03] VITALS: BP 144/89
[2017-07-21] MEDS: LORazepam 2 MG TABLET PO PRN (02:30)
[2017-07-21] MEDS: GABAPENTIN 400 MG CAPSULE PO SCH ×3 (08:18→16:38)
[2017-07-21] MEDS: AmLODIPine BESYLATE 2.5 MG TABLET PO SCH (08:18)
[2017-07-21] MEDS: LevETIRAcetam 250 MG TABLET PO SCH ×2 (08:18→16:38)
[2017-07-21] MEDS: BusPIRone HCL 10 MG TABLET PO SCH ×2 (08:18→16:38)
[2017-07-21] MEDS: SERTRALINE HCL 100 MG TABLET PO SCH (08:18)
[2017-07-21] MEDS: NICOTINE 21 MG/24 HOUR PATCH TD SCH (08:19)
[2017-07-21 08:32] VITALS: BP 139/74
[2017-07-21 18:00] VITALS: BP 123/69
[2017-07-21] MEDS: ZOLPIDEM TARTRATE 10 MG TABLET PO PRN (21:04)
[2017-07-22 02:00] VITALS: BP 139/80
[2017-07-22] MEDS: LORazepam 2 MG TABLET PO PRN ×2 (06:29→19:06)
[2017-07-22 08:33] VITALS: BP 126/67
[2017-07-22] MEDS: NICOTINE 21 MG/24 HOUR PATCH TD SCH (09:11)
[2017-07-22] MEDS: AmLODIPine BESYLATE 2.5 MG TABLET PO SCH (09:11)
[2017-07-22] MEDS: BusPIRone HCL 10 MG TABLET PO SCH ×2 (09:11→16:39)
[2017-07-22] MEDS: GABAPENTIN 400 MG CAPSULE PO SCH ×3 (09:11→16:39)
[2017-07-22] MEDS: SERTRALINE HCL 100 MG TABLET PO SCH (09:11)
[2017-07-22] MEDS: LevETIRAcetam 250 MG TABLET PO SCH ×2 (09:11→16:39)
[2017-07-22 16:12] VITALS: BP 138/75
[2017-07-23] VITALS: BP 140/90
[2017-07-23] MEDS: LORazepam 2 MG TABLET PO PRN ×2 (00:06→12:20)
[2017-07-23] MEDS: ZOLPIDEM TARTRATE 10 MG TABLET PO PRN ×2 (01:12→21:12)
[2017-07-23] MEDS: AmLODIPine BESYLATE 2.5 MG TABLET PO SCH (08:13)
[2017-07-23] MEDS: BusPIRone HCL 10 MG TABLET PO SCH ×2 (08:13→17:08)
[2017-07-23] MEDS: SERTRALINE HCL 100 MG TABLET PO SCH (08:13)
[2017-07-23] MEDS: GABAPENTIN 400 MG CAPSULE PO SCH ×3 (08:13→17:08)
[2017-07-23] MEDS: LevETIRAcetam 250 MG TABLET PO SCH ×2 (08:13→17:08)
[2017-07-23] MEDS: NICOTINE 21 MG/24 HOUR PATCH TD SCH (08:15)
[2017-07-23 08:39] VITALS: BP 130/69
[2017-07-23 16:11] VITALS: BP 130/61
[2017-07-24] MEDS: LORazepam 2 MG TABLET PO PRN (01:17)
[2017-07-24 01:47] VITALS: BP 129/83
[2017-07-24 08:37] VITALS: BP 138/76
[2017-07-24] MEDS: BusPIRone HCL 10 MG TABLET PO SCH ×2 (09:36→17:09)
[2017-07-24] MEDS: GABAPENTIN 400 MG CAPSULE PO SCH ×3 (09:37→17:09)
[2017-07-24] MEDS: LevETIRAcetam 250 MG TABLET PO SCH ×2 (09:37→17:09)
[2017-07-24] MEDS: SERTRALINE HCL 100 MG TABLET PO SCH (09:37)
[2017-07-24] MEDS: AmLODIPine BESYLATE 2.5 MG TABLET PO SCH (09:37)
[2017-07-24] MEDS: NICOTINE 21 MG/24 HOUR PATCH TD SCH (09:38)
[2017-07-24 16:12] VITALS: BP 125/67
[2017-07-24] MEDS: ZOLPIDEM TARTRATE 10 MG TABLET PO PRN (21:50)
[2017-07-25] MEDS: LORazepam 2 MG TABLET PO PRN ×2 (00:37→16:05)
[2017-07-25 03:35] VITALS: BP 140/90
[2017-07-25 08:31] VITALS: BP 124/64
[2017-07-25] MEDS: SERTRALINE HCL 100 MG TABLET PO SCH (08:57)
[2017-07-25] MEDS: LevETIRAcetam 250 MG TABLET PO SCH ×2 (08:57→16:40)
[2017-07-25] MEDS: GABAPENTIN 400 MG CAPSULE PO SCH ×3 (08:57→16:40)
[2017-07-25] MEDS: AmLODIPine BESYLATE 2.5 MG TABLET PO SCH (08:57)
[2017-07-25] MEDS: BusPIRone HCL 10 MG TABLET PO SCH ×2 (08:57→16:40)
[2017-07-25] MEDS: NICOTINE 21 MG/24 HOUR PATCH TD SCH (08:58)
[2017-07-25 09:03] LABS: ALANINE AMINOTRANSFERASE 26 U/L (12-78); ALBUMIN 3.5 g/dL (3.4-5.0); ALKALINE PHOSPHATASE 91 U/L (46-116); ANION GAP 7 mmol/L (8-16); ASPARTATE AMINOTRANSFERASE 21 U/L (15-37); BILIRUBIN,TOTAL 0.4 mg/dL (0.1-1.0); CALCIUM, TOTAL 8.5 mg/dL (8.8-10.5); CARBON DIOXIDE 29 mmol/L (22-29); CHLORIDE 103 mmol/L (98-107); CREATINE KINASE MB 1.4 ng/mL (0-5); CREATINE KINASE, TOTAL 108 U/L (39-308); CREATININE 1.36 mg/dL (0.60-1.30); GLOMERULAR FILTR. RATE CALC > 60 mL/min (>60); GLUCOSE,RANDOM 77 mg/dL (70-110); POTASSIUM 3.8 mmol/L (3.5-5.1); SODIUM SERUM 139 mmol/L (136-145); TOTAL PROTEIN, SERUM 7.2 g/dL (6.4-8.2); UREA NITROGEN, BLOOD 19 mg/dL (7-18)
[2017-07-25 16:06] VITALS: BP 138/81
[2017-07-25] MEDS: ZOLPIDEM TARTRATE 10 MG TABLET PO PRN (22:12)
[2017-07-26 01:26] VITALS: BP 134/64
[2017-07-26] MEDS: LORazepam 2 MG TABLET PO PRN ×2 (04:06→19:49)
[2017-07-26 08:49] VITALS: BP 127/68
[2017-07-26] MEDS: BusPIRone HCL 10 MG TABLET PO SCH ×2 (09:13→16:44)
[2017-07-26] MEDS: SERTRALINE HCL 100 MG TABLET PO SCH (09:13)
[2017-07-26] MEDS: GABAPENTIN 400 MG CAPSULE PO SCH ×3 (09:13→16:44)
[2017-07-26] MEDS: AmLODIPine BESYLATE 2.5 MG TABLET PO SCH (09:13)
[2017-07-26] MEDS: LevETIRAcetam 250 MG TABLET PO SCH ×2 (09:13→16:44)
[2017-07-26] MEDS: NICOTINE 21 MG/24 HOUR PATCH TD SCH (09:14)
[2017-07-26 16:47] VITALS: BP 142/77
[2017-07-26] MEDS: ZOLPIDEM TARTRATE 10 MG TABLET PO PRN (22:09)
[2017-07-27 02:41] VITALS: BP 127/68
[2017-07-27 08:45] VITALS: BP 145/78
[2017-07-27] MEDS: SERTRALINE HCL 100 MG TABLET PO SCH (09:15)
[2017-07-27] MEDS: GABAPENTIN 400 MG CAPSULE PO SCH ×3 (09:15→16:41)
[2017-07-27] MEDS: LevETIRAcetam 250 MG TABLET PO SCH ×2 (09:16→16:41)
[2017-07-27] MEDS: NICOTINE 21 MG/24 HOUR PATCH TD SCH (09:16)
[2017-07-27] MEDS: BusPIRone HCL 10 MG TABLET PO SCH ×2 (09:16→16:41)
[2017-07-27] MEDS: AmLODIPine BESYLATE 2.5 MG TABLET PO SCH (09:16)
[2017-07-27 16:16] VITALS: BP 129/85
[2017-07-27] MEDS: LORazepam 2 MG TABLET PO PRN (19:59)
[2017-07-27] MEDS: ZOLPIDEM TARTRATE 10 MG TABLET PO PRN (21:15)
[2017-07-28 00:10] VITALS: BP 134/69
[2017-07-28 08:12] VITALS: BP 134/79
[2017-07-28] MEDS: LevETIRAcetam 250 MG TABLET PO SCH ×2 (08:12→16:16)
[2017-07-28] MEDS: SERTRALINE HCL 100 MG TABLET PO SCH (08:12)
[2017-07-28] MEDS: BusPIRone HCL 10 MG TABLET PO SCH ×2 (08:12→16:16)
[2017-07-28] MEDS: GABAPENTIN 400 MG CAPSULE PO SCH ×3 (08:12→16:16)
[2017-07-28] MEDS: AmLODIPine BESYLATE 2.5 MG TABLET PO SCH (08:12)
[2017-07-28] MEDS: NICOTINE 21 MG/24 HOUR PATCH TD SCH (08:13)
[2017-07-28] MEDS: LORazepam 2 MG TABLET PO PRN (14:22)
[2017-07-28 16:00] VITALS: BP 120/65
[2017-07-28] MEDS: ZOLPIDEM TARTRATE 10 MG TABLET PO PRN (20:34)
[2017-07-29 03:21] VITALS: BP 135/90
[2017-07-29 08:05] VITALS: BP 118/60
[2017-07-29] MEDS: AmLODIPine BESYLATE 2.5 MG TABLET PO SCH (08:30)
[2017-07-29] MEDS: BusPIRone HCL 10 MG TABLET PO SCH ×2 (08:30→16:31)
[2017-07-29] MEDS: NICOTINE 21 MG/24 HOUR PATCH TD SCH (08:30)
[2017-07-29] MEDS: GABAPENTIN 400 MG CAPSULE PO SCH ×3 (08:30→16:32)
[2017-07-29] MEDS: SERTRALINE HCL 100 MG TABLET PO SCH (08:30)
[2017-07-29] MEDS: LevETIRAcetam 250 MG TABLET PO SCH ×2 (08:30→16:31)
[2017-07-29] MEDS: LORazepam 2 MG TABLET PO PRN (14:45)
[2017-07-29 16:06] VITALS: BP 143/89
[2017-07-29] MEDS: ZOLPIDEM TARTRATE 10 MG TABLET PO PRN (22:06)
[2017-07-29 22:09] VITALS: BP 146/81
[2017-07-30 00:40] VITALS: BP 128/75
[2017-07-30 08:22] VITALS: BP 137/85
[2017-07-30] MEDS: GABAPENTIN 400 MG CAPSULE PO SCH ×3 (08:23→16:45)
[2017-07-30] MEDS: AmLODIPine BESYLATE 2.5 MG TABLET PO SCH (08:23)
[2017-07-30] MEDS: BusPIRone HCL 10 MG TABLET PO SCH ×2 (08:23→16:45)
[2017-07-30] MEDS: LevETIRAcetam 250 MG TABLET PO SCH ×2 (08:23→16:45)
[2017-07-30] MEDS: SERTRALINE HCL 100 MG TABLET PO SCH (08:23)
[2017-07-30] MEDS: NICOTINE 21 MG/24 HOUR PATCH TD SCH (08:24)
[2017-07-30] MEDS: LORazepam 2 MG TABLET PO PRN ×2 (10:54→20:18)
[2017-07-30 16:24] VITALS: BP 141/87
[2017-07-30] MEDS: ZOLPIDEM TARTRATE 10 MG TABLET PO PRN (21:23)
[2017-07-31 02:13] VITALS: BP 142/83
[2017-07-31] MEDS: LevETIRAcetam 250 MG TABLET PO SCH ×2 (08:13→16:37)
[2017-07-31] MEDS: NICOTINE 21 MG/24 HOUR PATCH TD SCH (08:15)
[2017-07-31] MEDS: SERTRALINE HCL 100 MG TABLET PO SCH (08:15)
[2017-07-31] MEDS: BusPIRone HCL 10 MG TABLET PO SCH ×2 (08:15→16:37)
[2017-07-31] MEDS: GABAPENTIN 400 MG CAPSULE PO SCH ×3 (08:15→16:37)
[2017-07-31] MEDS: AmLODIPine BESYLATE 2.5 MG TABLET PO SCH (08:15)
[2017-07-31 08:21] VITALS: BP 138/85
[2017-07-31] MEDS: LORazepam 2 MG TABLET PO PRN ×2 (12:28→18:17)
[2017-07-31 16:15] VITALS: BP 124/64
[2017-07-31] MEDS: ZOLPIDEM TARTRATE 10 MG TABLET PO PRN (20:57)
[2017-08-01 03:52] VITALS: BP 118/67
[2017-08-01] MEDS: AmLODIPine BESYLATE 2.5 MG TABLET PO SCH (08:18)
[2017-08-01] MEDS: SERTRALINE HCL 100 MG TABLET PO SCH (08:18)
[2017-08-01] MEDS: GABAPENTIN 400 MG CAPSULE PO SCH (08:18)
[2017-08-01] MEDS: BusPIRone HCL 10 MG TABLET PO SCH (08:18)
[2017-08-01] MEDS: LevETIRAcetam 250 MG TABLET PO SCH (08:18)
[2017-08-01] MEDS: LORazepam 2 MG TABLET PO PRN (08:19)
[2017-08-01] MEDS: NICOTINE 21 MG/24 HOUR PATCH TD SCH (08:19)
[2017-08-01 08:22] VITALS: BP 134/72
[2017-08-01] MEDS ORDERED: AMLO2.5T PO (09:45)
[2017-08-01] MEDS ORDERED: BUSP10TA23 PO (09:57)
== END 2017-08-01 11:05 | disposition home or self-care (01) | DRG 885 ==
LOC: EMS 22:28 → B2X 07-17 05:30
PROVIDERS: ADMIT Psychiatry & Neurology Child & Adolescent Psychiatry; ATTEND Psychiatry & Neurology Child & Adolescent Psychiatry
DX: F33.2 Major depressive disorder, recurrent severe without psychotic features (principal); F03.90 Unspecified dementia, unspecified severity, without behavioral disturbance, psychotic disturbance, mood disturbance, and anxiety; F14.20 Cocaine dependence, uncomplicated; R45.851 Suicidal ideations; D64.9 Anemia, unspecified; E87.6 Hypokalemia; F41.1 Generalized anxiety disorder; G40.909 Epilepsy, unspecified, not intractable, without status epilepticus; I12.9 Hypertensive chronic kidney disease with stage 1 through stage 4 chronic kidney disease, or unspecified chronic kidney disease; N18.9 Chronic kidney disease, unspecified; F17.210 Nicotine dependence, cigarettes, uncomplicated; F12.90 Cannabis use, unspecified, uncomplicated; Z59.0 Homelessness; Z79.899 Other long term (current) drug therapy; Z91.5 Personal history of self-harm; Z88.8 Allergy status to other drugs, medicaments and biological substances; Z82.49 Family history of ischemic heart disease and other diseases of the circulatory system
CPT/HCPCS: 83735; 84132; 87081; 96365; 96366; 99285; G0480; J3480; J7030

== ENCOUNTER 2017-12-12 05:18 | Emergency (ER) | payer MEDICARE, OTHER ==
[~2017-12-12] VITALS: Ht 182.9 cm; Wt 79.5 kg
[~2017-12-12 05:18] MED LIST changes: +AMLO2.5T3 PO; +BUSP10TA23 PO; -CHL25 PO; -FERR325T22 PO; -HYDR-4031 PO; -LOSA25TA21 PO
[2017-12-12] MEDS ORDERED: ATOR20TA65 PO (05:27)
[2017-12-12] MEDS ORDERED: LOSA50TA25 PO (05:27)
[2017-12-12] MEDS ORDERED: TRAZ-220 PO (05:27)
[2017-12-12] MEDS ORDERED: HYDR25TA PO (05:27)
[2017-12-12 06:27] LABS: ANION GAP 10 mmol/L (8-16); BASOPHILS % (AUTO) 0.6 % (0.0-2.0); CARBON DIOXIDE 29 mmol/L (22-29); CHLORIDE 98 mmol/L (98-107); CREATININE 1.33 mg/dL (0.60-1.30); EOSINOPHILS % (AUTO) 0.6 % (1.0-6.0); GLOMERULAR FILTR. RATE CALC > 60 mL/min (>60); GLUCOSE,RANDOM 98 mg/dL (70-110); HEMATOCRIT 43.3 % (41-53); HEMOGLOBIN 14.2 g/dL (13.5-17.5); LYMPHOCYTES # (AUTO) 1.1 K/uL (1.0-4.8); LYMPHOCYTES % (AUTO) 19.8 % (22.0-44.0); MEAN CORPUSCULAR HEMOGLOBIN 30.2 pg (26.0-34.0); MEAN CORPUSCULAR HGB CONC 32.9 G/dL (31.0-37.0); MEAN CORPUSCULAR VOLUME 92 fL (80-100); MONOCYTES # (AUTO) 0.4 K/uL (0.1-1.0); MONOCYTES % (AUTO) 6.7 % (2.0-9.0); NEUTROPHILS % (AUTO) 72.3 % (40.0-70.0); PLATELET COUNT (AUTO) 213 K/uL (150-450); RED BLOOD CELL COUNT(AUTO) 4.71 MIL/uL (4.50-5.90); RED CELL DISTRIBUTION WIDTH 13.6 % (11.5-14.5); SODIUM SERUM 137 mmol/L (136-145); UREA NITROGEN, BLOOD 15 mg/dL (7-18)
[2017-12-12 06:33] LABS: ALANINE AMINOTRANSFERASE 24 U/L (12-78); ALBUMIN 4.1 g/dL (3.4-5.0); ALKALINE PHOSPHATASE 92 U/L (46-116); ASPARTATE AMINOTRANSFERASE 27 U/L (15-37); BILIRUBIN,TOTAL 0.4 mg/dL (0.1-1.0); TOTAL PROTEIN, SERUM 7.3 g/dL (6.4-8.2)
[2017-12-12] MEDS ORDERED: POTASSIUM CHLORIDE 10% 40 MEQ/30 ML LIQUID UDCUP PO ONE (07:15)
[2017-12-12] MEDS ORDERED: THIAMINE HCL 100 MG TABLET PO ONE (07:15)
[2017-12-12] MEDS ORDERED: FOLIC ACID 1 MG TABLET PO ONE (07:15)
[2017-12-12 12:53] VITALS: BP 106/55
== END 2017-12-12 13:26 | disposition home or self-care (01) ==
LOC: EMS 05:19
DX: S00.01XA Abrasion of scalp, initial encounter (principal); F03.90 Unspecified dementia, unspecified severity, without behavioral disturbance, psychotic disturbance, mood disturbance, and anxiety; F32.9 Major depressive disorder, single episode, unspecified; I10 Essential (primary) hypertension; F17.210 Nicotine dependence, cigarettes, uncomplicated; F14.90 Cocaine use, unspecified, uncomplicated; F10.99 Alcohol use, unspecified with unspecified alcohol-induced disorder; Z88.8 Allergy status to other drugs, medicaments and biological substances; Z79.899 Other long term (current) drug therapy; W19.XXXA Unspecified fall, initial encounter; Y93.89 Activity, other specified; Y92.89 Other specified places as the place of occurrence of the external cause; Y99.8 Other external cause status; Y90.8 Blood alcohol level of 240 mg/100 ml or more
CPT/HCPCS: 36415; 70450; 72125; 80053; 85025; 99285; G0480

== ENCOUNTER 2018-01-17 13:00 | Inpatient (IN) | payer MEDICARE, MEDICAID ==
[2018-01-17] VITALS (8 sets, daily range): BP systolic 113–136; BP diastolic 74–87
[~2018-01-17] VITALS: Ht 182.9 cm; Wt 77.6 kg
[~2018-01-17 13:00] MED LIST changes: +ATOR20TA65 PO; +HYDR25TA PO; +LOSA50TA25 PO; +TRAZ-220 PO
[2018-01-17] MEDS ORDERED: QUEtiapine FUMARATE 100 MG TABLET PO PRN (13:15)
[2018-01-17] MEDS ORDERED: LORazepam 2 MG TABLET PO PRN (13:15)
[2018-01-17] MEDS ORDERED: ZOLPIDEM TARTRATE 10 MG TABLET PO PRN (13:15)
[2018-01-17] MEDS ORDERED: LOPERAMIDE HCL 2 MG CAPSULE PO PRN ×2 (13:45→14:00)
[2018-01-17] MEDS ORDERED: MAG HYDROX/AL HYDROX/SIMETH ES 30 ML SUSPENSION UDCUP PO PRN (13:45)
[2018-01-17] MEDS ORDERED: GuaiFENesin/D-METHORPHAN [SUGAR-FREE] 200-20MG/10 ML SYRUP UDCUP PO PRN (13:45)
[2018-01-17] MEDS ORDERED: MAGNESIUM HYDROXIDE SUSPENSION 30 ML UDCUP PO PRN (13:45)
[2018-01-17] MEDS ORDERED: PROMETHAZINE HCL 25 MG TABLET PO PRN ×2 (13:45→14:00)
[2018-01-17] MEDS ORDERED: HydrOXYzine PAMOATE 50 MG CAPSULE PO PRN (13:45)
[2018-01-17] MEDS ORDERED: ACETAMINOPHEN 325 MG TABLET PO PRN (13:45)
[2018-01-17] MEDS ORDERED: TUBERCULIN, PURIFIED PROTEIN DERIVATIVE 5 TU/0.1 ML SYG ID ONE (13:45)
[2018-01-17] MEDS ORDERED: CYANOCOBALAMIN 1,000 MCG/ML VIAL IM ONE (14:00)
[2018-01-17] MEDS ORDERED: DIAZEPAM 10 MG TABLET PO PRN (14:00)
[2018-01-17] MEDS: GABAPENTIN 400 MG CAPSULE PO SCH ×2 (14:45→21:31)
[2018-01-17] MEDS ORDERED: TraZODone HCL 50 MG TABLET PO SCH (16:00)
[2018-01-17] MEDS: THIAMINE HCL 100 MG TABLET PO SCH (21:32)
[2018-01-17] MEDS: LevETIRAcetam 250 MG TABLET PO SCH (21:32)
[2018-01-18] VITALS (8 sets, daily range): BP systolic 116–130; BP diastolic 66–87
[2018-01-18] MEDS: MULTIVITAMINS WITH MINERALS, THERAPEUTIC TABLET PO SCH (08:20)
[2018-01-18] MEDS: NALTREXONE HCL 50 MG TABLET PO SCH (08:20)
[2018-01-18] MEDS: AmLODIPine BESYLATE 2.5 MG TABLET PO SCH (08:20)
[2018-01-18] MEDS: FOLIC ACID 1 MG TABLET PO SCH (08:20)
[2018-01-18] MEDS: LevETIRAcetam 250 MG TABLET PO SCH ×2 (08:20→17:11)
[2018-01-18] MEDS: DULoxetine HCL 20 MG CAPSULE PO SCH (08:20)
[2018-01-18] MEDS: THIAMINE HCL 100 MG TABLET PO SCH ×2 (08:20→17:11)
[2018-01-18] MEDS: DIAZEPAM 10 MG TABLET PO SCH ×4 (08:21→20:35)
[2018-01-18] MEDS: GABAPENTIN 400 MG CAPSULE PO SCH ×3 (08:21→17:11)
[2018-01-18 08:31] LABS: BASOPHILS % (AUTO) 0.8 % (0.0-2.0); EOSINOPHILS % (AUTO) 7.5 % (1.0-6.0); HEMATOCRIT 38.2 % (41-53); HEMOGLOBIN 12.9 g/dL (13.5-17.5); LYMPHOCYTES # (AUTO) 1.9 K/uL (1.0-4.8); LYMPHOCYTES % (AUTO) 34.2 % (22.0-44.0); MEAN CORPUSCULAR HEMOGLOBIN 30.9 pg (26.0-34.0); MEAN CORPUSCULAR HGB CONC 33.8 G/dL (31.0-37.0); MEAN CORPUSCULAR VOLUME 92 fL (80-100); MONOCYTES # (AUTO) 0.7 K/uL (0.1-1.0); MONOCYTES % (AUTO) 12.3 % (2.0-9.0); NEUTROPHILS # (AUTO) 2.5 K/uL (1.8-7.7); NEUTROPHILS % (AUTO) 45.2 % (40.0-70.0); PLATELET COUNT (AUTO) 196 K/uL (150-450); RED BLOOD CELL COUNT(AUTO) 4.17 MIL/uL (4.50-5.90); RED CELL DISTRIBUTION WIDTH 13.8 % (11.5-14.5)
[2018-01-18] MEDS: ATORVASTATIN CALCIUM 20 MG TABLET PO SCH (08:56)
[2018-01-18 08:58] LABS: HEMOGLOBIN A1C 4.7 % (4.5-6.2)
[2018-01-18] MEDS: NICOTINE 21 MG/24 HOUR PATCH TD SCH (08:58)
[2018-01-18 09:11] LABS: ALANINE AMINOTRANSFERASE 26 U/L (12-78); ALBUMIN 3.2 g/dL (3.4-5.0); ALKALINE PHOSPHATASE 91 U/L (46-116); ANION GAP 3 mmol/L (8-16); ASPARTATE AMINOTRANSFERASE 27 U/L (15-37); BILIRUBIN,TOTAL 0.5 mg/dL (0.1-1.0); CALCIUM, TOTAL 8.2 mg/dL (8.8-10.5); CARBON DIOXIDE 35 mmol/L (22-29); CHLORIDE 106 mmol/L (98-107); CHOL/HDL RATIO 2.9 (4.2-7.3); CHOLESTEROL 95 mg/dL (131-200); CREATININE 1.18 mg/dL (0.60-1.30); GLOMERULAR FILTR. RATE CALC > 60 mL/min (>60); GLUCOSE,RANDOM 83 mg/dL (70-110); HDL CHOLESTEROL 33 mg/dL (40-60); LDL CHOL (CALC.) 44 mg/dL (0-130); POTASSIUM 3.8 mmol/L (3.5-5.1); SODIUM SERUM 144 mmol/L (136-145); THYROID STIMULATING HORMONE 0.66 uIU/mL (0.36-3.74); TOTAL PROTEIN, SERUM 5.8 g/dL (6.4-8.2); TRIGLYCERIDES 91 mg/dL (15-150); UREA NITROGEN, BLOOD 13 mg/dL (7-18)
[2018-01-18] MEDS: LOSARTAN POTASSIUM 50 MG TABLET PO SCH (12:30)
[2018-01-18] MEDS ORDERED: OLANZapine 5 MG RAPDIS TABLET PO PRN (14:30)
[2018-01-19 00:06] VITALS: BP 128/77
[2018-01-19] MEDS: DIAZEPAM 10 MG TABLET PO PRN (02:47)
[2018-01-19 09:35] VITALS: BP 144/86
[2018-01-19] MEDS: LOSARTAN POTASSIUM 50 MG TABLET PO SCH (09:37)
[2018-01-19] MEDS: DULoxetine HCL 20 MG CAPSULE PO SCH (09:38)
[2018-01-19] MEDS: AmLODIPine BESYLATE 2.5 MG TABLET PO SCH (09:38)
[2018-01-19] MEDS: FOLIC ACID 1 MG TABLET PO SCH (09:38)
[2018-01-19] MEDS: GABAPENTIN 400 MG CAPSULE PO SCH ×3 (09:38→16:30)
[2018-01-19] MEDS: NALTREXONE HCL 50 MG TABLET PO SCH (09:38)
[2018-01-19] MEDS: MULTIVITAMINS WITH MINERALS, THERAPEUTIC TABLET PO SCH (09:38)
[2018-01-19] MEDS: THIAMINE HCL 100 MG TABLET PO SCH ×2 (09:38→16:30)
[2018-01-19] MEDS: LevETIRAcetam 250 MG TABLET PO SCH ×2 (09:38→16:29)
[2018-01-19] MEDS: ATORVASTATIN CALCIUM 20 MG TABLET PO SCH (09:38)
[2018-01-19] MEDS: DIAZEPAM 10 MG TABLET PO SCH ×4 (09:38→20:38)
[2018-01-19] MEDS: NICOTINE 21 MG/24 HOUR PATCH TD SCH (09:39)
[2018-01-19 16:08] VITALS: BP 119/77
[2018-01-20] VITALS: BP 121/70
[2018-01-20] MEDS: DIAZEPAM 10 MG TABLET PO PRN (00:05)
[2018-01-20] MEDS ORDERED: DIAZEPAM 5 MG TABLET PO PRN (07:00)
[2018-01-20 08:25] VITALS: BP 140/82
[2018-01-20 08:26] VITALS: BP 140/82
[2018-01-20] MEDS: AmLODIPine BESYLATE 2.5 MG TABLET PO SCH (08:28)
[2018-01-20] MEDS: MULTIVITAMINS WITH MINERALS, THERAPEUTIC TABLET PO SCH (08:28)
[2018-01-20] MEDS: NALTREXONE HCL 50 MG TABLET PO SCH (08:28)
[2018-01-20] MEDS: FOLIC ACID 1 MG TABLET PO SCH (08:28)
[2018-01-20] MEDS: ATORVASTATIN CALCIUM 20 MG TABLET PO SCH (08:28)
[2018-01-20] MEDS: THIAMINE HCL 100 MG TABLET PO SCH ×2 (08:28→16:30)
[2018-01-20] MEDS: LevETIRAcetam 250 MG TABLET PO SCH ×2 (08:28→16:30)
[2018-01-20] MEDS: DULoxetine HCL 20 MG CAPSULE PO SCH (08:28)
[2018-01-20] MEDS: GABAPENTIN 400 MG CAPSULE PO SCH ×3 (08:28→16:31)
[2018-01-20] MEDS: LOSARTAN POTASSIUM 50 MG TABLET PO SCH (08:29)
[2018-01-20] MEDS: NICOTINE 21 MG/24 HOUR PATCH TD SCH (08:29)
[2018-01-20] MEDS: DIAZEPAM 5 MG TABLET PO SCH ×4 (08:29→20:30)
[2018-01-20 16:09] VITALS: BP 126/74
[2018-01-21 00:51] VITALS: BP 140/81
[2018-01-21] MEDS ORDERED: DIAZEPAM 5 MG TABLET PO PRN (07:00)
[2018-01-21] MEDS: LOSARTAN POTASSIUM 50 MG TABLET PO SCH (08:19)
[2018-01-21] MEDS: MULTIVITAMINS WITH MINERALS, THERAPEUTIC TABLET PO SCH (08:19)
[2018-01-21] MEDS: AmLODIPine BESYLATE 2.5 MG TABLET PO SCH (08:19)
[2018-01-21] MEDS: DULoxetine HCL 20 MG CAPSULE PO SCH (08:19)
[2018-01-21] MEDS: NALTREXONE HCL 50 MG TABLET PO SCH (08:19)
[2018-01-21] MEDS: GABAPENTIN 400 MG CAPSULE PO SCH ×3 (08:20→17:07)
[2018-01-21] MEDS: NICOTINE 21 MG/24 HOUR PATCH TD SCH (08:20)
[2018-01-21] MEDS: LevETIRAcetam 250 MG TABLET PO SCH ×2 (08:20→17:06)
[2018-01-21] MEDS: THIAMINE HCL 100 MG TABLET PO SCH ×2 (08:20→17:07)
[2018-01-21] MEDS: ATORVASTATIN CALCIUM 20 MG TABLET PO SCH (08:20)
[2018-01-21] MEDS: FOLIC ACID 1 MG TABLET PO SCH (08:20)
[2018-01-21 08:25] VITALS: BP 136/82
[2018-01-21 10:25] LABS: ALANINE AMINOTRANSFERASE 24 U/L (12-78); ALBUMIN 3.4 g/dL (3.4-5.0); ALKALINE PHOSPHATASE 107 U/L (46-116); ANION GAP 6 mmol/L (8-16); ASPARTATE AMINOTRANSFERASE 21 U/L (15-37); BILIRUBIN,TOTAL 0.4 mg/dL (0.1-1.0); CALCIUM, TOTAL 8.4 mg/dL (8.8-10.5); CARBON DIOXIDE 30 mmol/L (22-29); CHLORIDE 106 mmol/L (98-107); CREATINE KINASE, TOTAL ONLY 124 U/L (39-308); CREATININE 1.07 mg/dL (0.60-1.30); GLOMERULAR FILTR. RATE CALC > 60 mL/min (>60); GLUCOSE,RANDOM 82 mg/dL (70-110); POTASSIUM 3.8 mmol/L (3.5-5.1); SODIUM SERUM 142 mmol/L (136-145); TOTAL PROTEIN, SERUM 6.9 g/dL (6.4-8.2)
[2018-01-21 12:05] LABS: UREA NITROGEN, BLOOD 17 mg/dL (7-18)
[2018-01-21 16:29] VITALS: BP 148/76
[2018-01-21 16:58] VITALS: BP 141/86
[2018-01-22 00:46] VITALS: BP 137/80
[2018-01-22 00:47] VITALS: BP 137/80
[2018-01-22 08:00] VITALS: BP 130/90
[2018-01-22] MEDS: AmLODIPine BESYLATE 2.5 MG TABLET PO SCH (08:05)
[2018-01-22] MEDS: FOLIC ACID 1 MG TABLET PO SCH (08:05)
[2018-01-22] MEDS: THIAMINE HCL 100 MG TABLET PO SCH ×2 (08:05→16:31)
[2018-01-22] MEDS: MULTIVITAMINS WITH MINERALS, THERAPEUTIC TABLET PO SCH (08:05)
[2018-01-22] MEDS: LevETIRAcetam 250 MG TABLET PO SCH ×2 (08:06→16:31)
[2018-01-22] MEDS: GABAPENTIN 400 MG CAPSULE PO SCH ×3 (08:06→16:31)
[2018-01-22] MEDS: LOSARTAN POTASSIUM 50 MG TABLET PO SCH (08:06)
[2018-01-22] MEDS: ATORVASTATIN CALCIUM 20 MG TABLET PO SCH (08:06)
[2018-01-22] MEDS: NALTREXONE HCL 50 MG TABLET PO SCH (08:06)
[2018-01-22] MEDS: NICOTINE 21 MG/24 HOUR PATCH TD SCH (08:06)
[2018-01-22 08:22] VITALS: BP 130/90
[2018-01-22] MEDS ORDERED: DULoxetine HCL 30 MG CAPSULE PO SCH (09:00)
[2018-01-22] MEDS ORDERED: DIAZEPAM 10 MG TABLET PO PRN (14:15)
[2018-01-22] MEDS ORDERED: DIAZEPAM 10 MG TABLET PO ONE (14:15)
[2018-01-22 19:36] VITALS: BP 122/74
[2018-01-22 19:37] VITALS: BP 122/74
[2018-01-23 00:49] VITALS: BP 120/81
[2018-01-23] MEDS: LOSARTAN POTASSIUM 50 MG TABLET PO SCH (08:08)
[2018-01-23] MEDS: AmLODIPine BESYLATE 2.5 MG TABLET PO SCH (08:08)
[2018-01-23] MEDS: FOLIC ACID 1 MG TABLET PO SCH (08:08)
[2018-01-23] MEDS: THIAMINE HCL 100 MG TABLET PO SCH (08:08)
[2018-01-23] MEDS: ATORVASTATIN CALCIUM 20 MG TABLET PO SCH (08:08)
[2018-01-23] MEDS: MULTIVITAMINS WITH MINERALS, THERAPEUTIC TABLET PO SCH (08:08)
[2018-01-23] MEDS: GABAPENTIN 400 MG CAPSULE PO SCH (08:08)
[2018-01-23] MEDS: LevETIRAcetam 250 MG TABLET PO SCH (08:08)
[2018-01-23] MEDS: NALTREXONE HCL 50 MG TABLET PO SCH (08:09)
[2018-01-23] MEDS: NICOTINE 21 MG/24 HOUR PATCH TD SCH (08:09)
[2018-01-23 08:12] VITALS: BP 139/88
[2018-01-23] MEDS ORDERED: DULoxetine HCL 20 MG CAPSULE PO SCH (09:00)
[2018-01-23] MEDS ORDERED: DULO20CA30 PO (10:04)
[2018-01-23] MEDS ORDERED: GABA-533 PO (10:04)
[2018-01-23] MEDS ORDERED: NALT50TA6 PO (10:04)
== END 2018-01-23 10:50 | disposition home or self-care (01) | DRG 885 ==
LOC: B2X 13:34
PROVIDERS: ADMIT Psychiatry & Neurology Psychiatry; ATTEND Psychiatry & Neurology Psychiatry
DX: F33.2 Major depressive disorder, recurrent severe without psychotic features (principal); N18.9 Chronic kidney disease, unspecified; D64.9 Anemia, unspecified; E78.5 Hyperlipidemia, unspecified; F14.90 Cocaine use, unspecified, uncomplicated; F17.210 Nicotine dependence, cigarettes, uncomplicated; G40.909 Epilepsy, unspecified, not intractable, without status epilepticus; G62.9 Polyneuropathy, unspecified; I12.9 Hypertensive chronic kidney disease with stage 1 through stage 4 chronic kidney disease, or unspecified chronic kidney disease; F19.10 Other psychoactive substance abuse, uncomplicated; Z88.8 Allergy status to other drugs, medicaments and biological substances
CPT/HCPCS: 83036; 83735; 84439; 84443; G0482; J3420

== ENCOUNTER 2018-03-20 12:14 | Inpatient (IN) | payer MEDICARE, OTHER ==
[~2018-03-20] VITALS: Ht 182.9 cm; Wt 77.2 kg
[~2018-03-20 12:14] MED LIST changes: -AMLO2.5T3 PO; +AMLO2.5T4 PO; -BUSP10TA23 PO; +DULO20CA30 PO; +GABA-533 PO; -GABA800T PO; -HYDR25TA PO; -LOSA50TA25 PO; +LOSA50TA64 PO; +NALT50TA6 PO; -SERT100T12 PO; -TRAZ-220 PO
[2018-03-20 12:49] LABS: BASOPHILS % (AUTO) 1.1 % (0.0-2.0); EOSINOPHILS % (AUTO) 7.3 % (1.0-6.0); HEMATOCRIT 40.4 % (41-53); HEMOGLOBIN 13.5 g/dL (13.5-17.5); LYMPHOCYTES # (AUTO) 1.8 K/uL (1.0-4.8); LYMPHOCYTES % (AUTO) 40.2 % (22.0-44.0); MEAN CORPUSCULAR HGB CONC 33.5 G/dL (31.0-37.0); MEAN CORPUSCULAR VOLUME 92 fL (80-100); MONOCYTES # (AUTO) 0.6 K/uL (0.1-1.0); MONOCYTES % (AUTO) 13.4 % (2.0-9.0); NEUTROPHILS # (AUTO) 1.7 K/uL (1.8-7.7); PLATELET COUNT (AUTO) 204 K/uL (150-450); RED BLOOD CELL COUNT(AUTO) 4.37 MIL/uL (4.50-5.90); RED CELL DISTRIBUTION WIDTH 13.8 % (11.5-14.5)
[2018-03-20 12:54] LABS: ANION GAP 10 mmol/L (8-16); CALCIUM, TOTAL 8.7 mg/dL (8.8-10.5); CARBON DIOXIDE 26 mmol/L (22-29); CHLORIDE 105 mmol/L (98-107); CREATININE 1.25 mg/dL (0.60-1.30); GLOMERULAR FILTR. RATE CALC > 60 mL/min (>60); GLUCOSE,RANDOM 78 mg/dL (70-110); POTASSIUM 3.8 mmol/L (3.5-5.1); SODIUM SERUM 141 mmol/L (136-145); UREA NITROGEN, BLOOD 13 mg/dL (7-18)
[2018-03-20 12:55] LABS: INR 1.1 (0.9-1.1)
[2018-03-20 13:10] LABS: B-TYPE NATRIURETIC PEPTIDE 96 pg/mL (0-100)
[2018-03-20 13:16] LABS: ALANINE AMINOTRANSFERASE 128 U/L (12-78); ALBUMIN 3.7 g/dL (3.4-5.0); ALKALINE PHOSPHATASE 102 U/L (46-116); ASPARTATE AMINOTRANSFERASE 43 U/L (15-37); BILIRUBIN,TOTAL 0.6 mg/dL (0.1-1.0); CREATINE KINASE, TOTAL ONLY 287 U/L (39-308); TOTAL PROTEIN, SERUM 6.7 g/dL (6.4-8.2)
[2018-03-20] MEDS ORDERED: NICOTINE 7 MG/24 HOUR PATCH TD ONE (13:45)
[2018-03-20] MEDS ORDERED: NITROGLYCERIN 2% (1 GM=INCH) PACKET TP ONE (13:45)
[2018-03-20] MEDS ORDERED: ASPIRIN 81 MG CHEWABLE TABLET PO ONE (13:45)
[2018-03-20 20:38] VITALS: BP 144/90
[2018-03-20] MEDS ORDERED: MORPHINE SULFATE 4 MG/ML SYRINGE IVP PRN (21:00)
[2018-03-20] MEDS ORDERED: ONDANSETRON HCL 4 MG/2 ML VIAL IVP PRN (21:00)
[2018-03-20] MEDS ORDERED: MAGNESIUM HYDROXIDE SUSPENSION 30 ML UDCUP PO PRN (21:00)
[2018-03-20] MEDS ORDERED: BISACODYL 10 MG RECTAL RECTAL SUPPOSITORY PR PRN (21:00)
[2018-03-20] MEDS ORDERED: HYDROCODONE/ACETAMINOPHEN 5-325 MG TABLET PO PRN (21:00)
[2018-03-20] MEDS ORDERED: ACETAMINOPHEN 325 MG TABLET PO PRN (21:00)
[2018-03-20] MEDS: DOCUSATE SODIUM 100 MG CAPSULE PO SCH (21:00)
[2018-03-20] MEDS: ZOLPIDEM TARTRATE 5 MG TABLET PO PRN (21:10)
[2018-03-20] MEDS: LevETIRAcetam 250 MG TABLET PO SCH (21:10)
[2018-03-20] MEDS: GABAPENTIN 400 MG CAPSULE PO SCH (21:10)
[2018-03-21] VITALS (19 sets, daily range): BP systolic 126–184; BP diastolic 66–100
[2018-03-21] MEDS: NITROGLYCERIN 2% (1 GM=INCH) PACKET TP SCH ×4 (00:13→23:05)
[2018-03-21 06:39] LABS: BASOPHILS % (AUTO) 0.8 % (0.0-2.0); EOSINOPHILS % (AUTO) 5.8 % (1.0-6.0); HEMATOCRIT 39.7 % (41-53); LYMPHOCYTES # (AUTO) 2.5 K/uL (1.0-4.8); LYMPHOCYTES % (AUTO) 40.3 % (22.0-44.0); MEAN CORPUSCULAR HGB CONC 32.9 G/dL (31.0-37.0); MEAN CORPUSCULAR VOLUME 91 fL (80-100); MONOCYTES # (AUTO) 0.7 K/uL (0.1-1.0); MONOCYTES % (AUTO) 11.4 % (2.0-9.0); NEUTROPHILS # (AUTO) 2.6 K/uL (1.8-7.7); NEUTROPHILS % (AUTO) 41.7 % (40.0-70.0); PLATELET COUNT (AUTO) 207 K/uL (150-450); RED BLOOD CELL COUNT(AUTO) 4.34 MIL/uL (4.50-5.90); RED CELL DISTRIBUTION WIDTH 13.5 % (11.5-14.5)
[2018-03-21 07:18] LABS: ANION GAP 7 mmol/L (8-16); CALCIUM, TOTAL 8.4 mg/dL (8.8-10.5); CARBON DIOXIDE 29 mmol/L (22-29); CHLORIDE 105 mmol/L (98-107); CHOL/HDL RATIO 2.1 (4.2-7.3); CHOLESTEROL 66 mg/dL (131-200); CREATININE 1.29 mg/dL (0.60-1.30); GLOMERULAR FILTR. RATE CALC > 60 mL/min (>60); GLUCOSE,RANDOM 80 mg/dL (70-110); HDL CHOLESTEROL 31 mg/dL (40-60); LDL CHOL (CALC.) 14 mg/dL (0-130); POTASSIUM 3.7 mmol/L (3.5-5.1); SODIUM SERUM 141 mmol/L (136-145); TRIGLYCERIDES 107 mg/dL (15-150); UREA NITROGEN, BLOOD 17 mg/dL (7-18)
[2018-03-21] MEDS: GABAPENTIN 400 MG CAPSULE PO SCH ×3 (09:00→21:51)
[2018-03-21] MEDS: LOSARTAN POTASSIUM 50 MG TABLET PO SCH (09:00)
[2018-03-21] MEDS: DULoxetine HCL 20 MG CAPSULE PO SCH (09:00)
[2018-03-21] MEDS: NALTREXONE HCL 50 MG TABLET PO SCH (09:00)
[2018-03-21] MEDS: ATORVASTATIN CALCIUM 20 MG TABLET PO SCH (09:00)
[2018-03-21] MEDS: PANTOPRAZOLE SODIUM 40 MG DR TABLET PO SCH (09:00)
[2018-03-21] MEDS: DOCUSATE SODIUM 100 MG CAPSULE PO SCH ×2 (09:00→21:51)
[2018-03-21] MEDS: AmLODIPine BESYLATE 2.5 MG TABLET PO SCH (09:00)
[2018-03-21] MEDS: LevETIRAcetam 250 MG TABLET PO SCH ×2 (09:00→21:51)
[2018-03-21] MEDS ORDERED: ASPIRIN 81 MG CHEWABLE TABLET PO SCH (09:00)
[2018-03-21] MEDS: HEPARIN SODIUM,PORCINE 5,000 UNITS/ML VIAL SQ SCH ×4 (09:04→23:04)
[2018-03-21] MEDS ORDERED: NICOTINE 14 MG/24 HOUR PATCH TD ONE (10:30)
[2018-03-21] MEDS ORDERED: HEPARIN SODIUM 1000 UNITS/NS 1,000 ML ONE (13:05)
[2018-03-21] MEDS ORDERED: IOHEXOL 300 MG/ML 150 ML VIAL ONE (13:05)
[2018-03-21] MEDS ORDERED: SODIUM BICARBONATE 50 MEQ/50 ML VIAL ONE (13:05)
[2018-03-21] MEDS ORDERED: LIDOCAINE/PF 1% 30 ML VIAL ONE (13:05)
[2018-03-21] MEDS ORDERED: IOHEXOL 300 MG/ML 100 ML VIAL ONE ×2 (14:27→15:07)
[2018-03-21] MEDS ORDERED: FentaNYL CITRATE-PF 100 MCG/2 ML VIAL ONE (14:29)
[2018-03-21] MEDS ORDERED: MIDAZOLAM HCL 2 MG/2 ML VIAL ONE (14:29)
[2018-03-21] MEDS ORDERED: HEPARIN SODIUM 1000 UNITS/NS 1,000 ML IARTER ONE (14:32)
[2018-03-21] MEDS ORDERED: SODIUM CHLORIDE 0.9% 500 ML IV ONE (14:32)
[2018-03-21] MEDS ORDERED: FentaNYL CITRATE-PF 100 MCG/2 ML VIAL IVP ONE (14:45)
[2018-03-21] MEDS ORDERED: MIDAZOLAM HCL 2 MG/2 ML VIAL IVP ONE (14:45)
[2018-03-21] MEDS ORDERED: IOHEXOL 300 MG/ML 150 ML VIAL IARTER ONE (14:45)
[2018-03-21] MEDS ORDERED: LIDOCAINE 1% 30 ML/SOD BICARB 8.4% 4 ML SQ ONE (14:45)
[2018-03-21] MEDS ORDERED: IOHEXOL 300 MG/ML 50 ML VIAL ONE (14:46)
[2018-03-21] MEDS ORDERED: NITROGLYCERIN 50 MG/D5% WATER 250 ML ONE (14:46)
[2018-03-21] MEDS ORDERED: ASPIRIN 325 MG TABLET ONE (14:46)
[2018-03-21] MEDS ORDERED: TICAGRELOR 90 MG TABLET ONE (14:46)
[2018-03-21] MEDS ORDERED: VERAPAMIL HCL 2.5 MG/ML 2 ML VIAL ONE (14:46)
[2018-03-21] MEDS ORDERED: EPTIFIBATIDE 2 MG/ML 10 ML VIAL IVP ONE ×2 (14:54→15:00)
[2018-03-21] MEDS ORDERED: HEPARIN SODIUM,PORCINE 5,000 UNITS/ML VIAL IVP ONE (15:00)
[2018-03-21] MEDS ORDERED: IOHEXOL 300 MG/ML 100 ML VIAL IARTER ONE ×2 (15:00→15:15)
[2018-03-21] MEDS ORDERED: IOHEXOL 300 MG/ML 50 ML VIAL IARTER ONE (15:00)
[2018-03-21] MEDS ORDERED: HydrALAZINE HCL 20 MG/ML VIAL ONE (15:00)
[2018-03-21] MEDS ORDERED: ASPIRIN 325 MG TABLET PO ONE (15:00)
[2018-03-21] MEDS ORDERED: TICAGRELOR 90 MG TABLET PO ONE (15:00)
[2018-03-21] MEDS ORDERED: HydrALAZINE HCL 20 MG/ML VIAL IVP ONE (15:15)
[2018-03-21] MEDS ORDERED: NITROGLYCERIN/D5W 50 MG/250 ML IV BOTTLE IARTER ONE (15:15)
[2018-03-21] MEDS ORDERED: NITROGLYCERIN/D5W 50 MG/250 ML IV BOTTLE ICOR ONE (15:30)
[2018-03-21] MEDS ORDERED: VERAPAMIL HCL 2.5 MG/ML 2 ML VIAL ICOR ONE (15:30)
[2018-03-21] MEDS: TICAGRELOR 90 MG TABLET PO SCH (21:51)
[2018-03-21] MEDS: ZOLPIDEM TARTRATE 5 MG TABLET PO PRN (23:06)
[2018-03-22] VITALS (7 sets, daily range): BP systolic 107–174; BP diastolic 61–95
[2018-03-22] MEDS ORDERED: ASPIRIN 81 MG CHEWABLE TABLET PO SCH (09:00)
[2018-03-22] MEDS ORDERED: NICOTINE 14 MG/24 HOUR PATCH TD SCH (09:00)
[2018-03-22] MEDS: LevETIRAcetam 250 MG TABLET PO SCH (09:04)
[2018-03-22] MEDS: HEPARIN SODIUM,PORCINE 5,000 UNITS/ML VIAL SQ SCH ×2 (09:04→16:52)
[2018-03-22] MEDS: DOCUSATE SODIUM 100 MG CAPSULE PO SCH (09:05)
[2018-03-22] MEDS: DULoxetine HCL 20 MG CAPSULE PO SCH (09:05)
[2018-03-22] MEDS: AmLODIPine BESYLATE 2.5 MG TABLET PO SCH (09:05)
[2018-03-22] MEDS: NALTREXONE HCL 50 MG TABLET PO SCH (09:06)
[2018-03-22] MEDS: TICAGRELOR 90 MG TABLET PO SCH (09:06)
[2018-03-22] MEDS: ATORVASTATIN CALCIUM 20 MG TABLET PO SCH (09:06)
[2018-03-22] MEDS: PANTOPRAZOLE SODIUM 40 MG DR TABLET PO SCH (09:07)
[2018-03-22] MEDS: NITROGLYCERIN 2% (1 GM=INCH) PACKET TP SCH ×2 (09:13→16:52)
[2018-03-22] MEDS: LOSARTAN POTASSIUM 50 MG TABLET PO SCH (09:13)
[2018-03-22 10:08] LABS: BASOPHILS % (AUTO) 0.7 % (0.0-2.0); EOSINOPHILS % (AUTO) 2.5 % (1.0-6.0); HEMOGLOBIN 14.4 g/dL (13.5-17.5); LYMPHOCYTES # (AUTO) 1.6 K/uL (1.0-4.8); LYMPHOCYTES % (AUTO) 21.9 % (22.0-44.0); MEAN CORPUSCULAR HEMOGLOBIN 30.8 pg (26.0-34.0); MEAN CORPUSCULAR HGB CONC 33.5 G/dL (31.0-37.0); MEAN CORPUSCULAR VOLUME 92 fL (80-100); MONOCYTES # (AUTO) 0.6 K/uL (0.1-1.0); MONOCYTES % (AUTO) 8.1 % (2.0-9.0); NEUTROPHILS % (AUTO) 66.8 % (40.0-70.0); PLATELET COUNT (AUTO) 215 K/uL (150-450); RED BLOOD CELL COUNT(AUTO) 4.68 MIL/uL (4.50-5.90); RED CELL DISTRIBUTION WIDTH 13.9 % (11.5-14.5)
[2018-03-22] MEDS: GABAPENTIN 400 MG CAPSULE PO SCH ×2 (10:12→16:52)
[2018-03-22 10:18] LABS: CALCIUM, TOTAL 8.8 mg/dL (8.8-10.5); CREATININE 1.43 mg/dL (0.60-1.30); POTASSIUM 3.6 mmol/L (3.5-5.1)
[2018-03-22] MEDS ORDERED: CARVEDILOL 3.125 MG TABLET PO SCH (13:15)
[2018-03-22] MEDS ORDERED: LORazepam 2 MG/ML VIAL IVP PRN (13:15)
[2018-03-22] MEDS ORDERED: CARVEDILOL 6.25 MG TABLET PO SCH ×2 (13:38→21:00)
[2018-03-22] MEDS ORDERED: CARV6.2534 PO (17:23)
[2018-03-22] MEDS ORDERED: ASPI81TA39 PO (17:23)
[2018-03-22] MEDS ORDERED: TICA90TA PO (17:25)
[2018-03-22] MEDS ORDERED: NICO1PAT49 TD (17:25)
[2018-03-23] MEDS ORDERED: AmLODIPine BESYLATE 5 MG TABLET PO SCH (09:00)
== END 2018-03-22 18:00 | disposition home or self-care (01) | DRG 246 ==
LOC: EMS 12:15 → 5S 18:06 → UNDOADMIN 18:06 → ICU 03-21 15:46
PROVIDERS: ADMIT Internal Medicine; ATTEND Internal Medicine
PROC: 027034Z Dilation of Coronary Artery, One Artery with Drug-eluting Intraluminal Device, Percutaneous Approach (ICD-10-PCS; principal; 2018-03-21)
PROC: 4A023N7 Measurement of Cardiac Sampling and Pressure, Left Heart, Percutaneous Approach (ICD-10-PCS; 2018-03-21)
PROC: B2111ZZ Fluoroscopy of Multiple Coronary Arteries using Low Osmolar Contrast (ICD-10-PCS; 2018-03-21)
PROC: B2151ZZ Fluoroscopy of Left Heart using Low Osmolar Contrast (ICD-10-PCS; 2018-03-21)
PROC: B41F1ZZ Fluoroscopy of Right Lower Extremity Arteries using Low Osmolar Contrast (ICD-10-PCS; 2018-03-21)
DX: I20.0 Unstable angina (principal); I21.9 Acute myocardial infarction, unspecified; I22.9 Subsequent ST elevation (STEMI) myocardial infarction of unspecified site; I10 Essential (primary) hypertension; Z91.19 Patient's noncompliance with other medical treatment and regimen; E78.5 Hyperlipidemia, unspecified; F99 Mental disorder, not otherwise specified; F19.10 Other psychoactive substance abuse, uncomplicated; F03.90 Unspecified dementia, unspecified severity, without behavioral disturbance, psychotic disturbance, mood disturbance, and anxiety; F14.10 Cocaine abuse, uncomplicated; F17.210 Nicotine dependence, cigarettes, uncomplicated; G40.909 Epilepsy, unspecified, not intractable, without status epilepticus; Z82.49 Family history of ischemic heart disease and other diseases of the circulatory system; Z88.8 Allergy status to other drugs, medicaments and biological substances
CPT/HCPCS: 87081; 92920; 92928; 93005; 93925; 99291; 99406; G0378; J0360; J1327; J1644; J2060; J2250; J2270; J3010; J3490; Q9967

== ENCOUNTER 2020-07-15 11:12 | Emergency (ER) | payer MEDICARE, OTHER ==
[~2020-07-15] VITALS: Ht 175.3 cm; Wt 75.0 kg
[~2020-07-15 11:12] MED LIST changes: -AMLO2.5T4 PO; +AMLO2.5T96 PO; +ASPI81TA39 PO; +CARV6.2534 PO; +DULO20CA27 PO; -DULO20CA30 PO; +GABA-1201 PO; -GABA-533 PO; +LOSA50TA37 PO; -LOSA50TA64 PO; +NICO1PAT49 TD; +TICA90TA PO
[2020-07-15 12:42] VITALS: BP 132/80
== END 2020-07-15 12:43 | disposition home or self-care (01) ==
LOC: EMS 11:16
DX: B86 Scabies (principal); F17.210 Nicotine dependence, cigarettes, uncomplicated; F14.90 Cocaine use, unspecified, uncomplicated; F32.9 Major depressive disorder, single episode, unspecified; I10 Essential (primary) hypertension; I25.2 Old myocardial infarction
CPT/HCPCS: 99282; Z7502

== ENCOUNTER 2020-07-20 08:58 | Emergency (ER) | payer MEDICARE, OTHER ==
[~2020-07-20] VITALS: Ht 182.9 cm; Wt 81.8 kg
[2020-07-20 09:02] VITALS: BP 154/92
[2020-07-20] MEDS ORDERED: PredniSONE 20 MG TABLET PO ONE (09:30)
== END 2020-07-20 09:50 | disposition home or self-care (01) ==
LOC: EMS 09:04
DX: B86 Scabies (principal); F32.9 Major depressive disorder, single episode, unspecified; I10 Essential (primary) hypertension; I25.2 Old myocardial infarction; F17.210 Nicotine dependence, cigarettes, uncomplicated; Z88.8 Allergy status to other drugs, medicaments and biological substances; Z91.011 Allergy to milk products; Z79.82 Long term (current) use of aspirin
CPT/HCPCS: 99283; J7512